=== PATIENT | female | born 1940 | race Caucasian/White ===

== ENCOUNTER 2018-12-05 11:11 | Inpatient (IN) | payer MEDICARE ==
[2018-12-05] VITALS (10 sets, daily range): BP systolic 110–150; BP diastolic 78–108
[~2018-12-05] VITALS: Ht 160 cm; Wt 75.2 kg
[2018-12-05] MEDS ORDERED: MELO7.5T46 PO (13:27)
[2018-12-05 13:56] LABS: ABG BASE EXCESS -1.3 MMOL/L (-2.5-2.5); ABG OXYGEN SATURATION 93 % (94-100); ABG PCO2 37 MMHG (35-45); ABG PO2 68 MMHG (79-93); ABG TCO2 24.1 MMOL/L (21.0-31.0)
[2018-12-05 13:57] LABS: ALLENS TEST POSITIVE; INSPIRED O2 4 L
--- NOTE | 2018-12-05 13:57 | Consultation-Cardiology ---
HPI-Cardiology Cardiology Consultation: Date of Consultation 12/05/18 Time Seen by a Provider: 13:10 Date of Admission 12-05-18 Attending Physician Asha Gipson DO Admitting Physician Amara,Local Physician Consulting Physician Lindsay Beasley MD HPI: Chief Complaint: Dyspnea Ms. Rachel is a 78 year old female admitted to ICU6 from [facility] in [place], [place] where she underwent R knee replacement on 12-04-[address] Saravia. She reports she got up this morning with PT. She ambulated to the PT room with walker and completed exercise rotation without difficulty. She reports on the way back to her room she began to feel suddenly SOB and felt as though she was gasping. She reports she became lightheaded. She was assisted to a w/c to sit. She reports she continued to feel SOB. She was told her oxygen level was 76%. She was placed on oxygen. She states she was assisted back to bed. She reports she is currently feeling better. She feels her SOB has improved. No c/o CP, palpitations, syncope, near syncope. No c/o LE swelling. She reports she takes no Rx medications. She states she does smoke cigs, approx 1/2 PPD at the most. Review of Systems-Cardiology Review of Systems Constitutional: No chills, No fever, No malaise Eyes: No vision change Ears/Nose/Throat: No epistaxis, No recent hearing loss Respiratory: As described under HPI Cardiovascular: As described under HPI Gastrointestinal: No constipation, No diarrhea, No nausea, No vomiting Genitourinary: No dysuria, No hematuria Musculoskeletal: no symptoms reported Skin: No rash on exposed areas, No ulcerations on exposed areas Psychiatric/Neurological: No anxiety, No depression, No seizure, No focal weakness, No syncope Hematologic: No bleeding abnormalities [id number]-Xixvol Hx Past Medical History PMH As described under Assessment. Family Medical History Family Medical History: She reports her mother and father had HTN. No reported h/o CAD, CVA. Allergies and Home Medications Allergies Coded Allergies: No Known Drug Allergies (Unverified , 12/05/18) Home Medications Esomeprazole Magnesium 20 Mg Tablet.dr, 20 MG PO DAILY PRN for HEARTBURN, (Reported) Guaifenesin/Dextromethorphan 1 Each Tab.er.12h, 1 TAB PO BID PRN for CONGESTION, (Reported) Lactobacillus Combo No.10 1 Each Capsule, 1 CAP PO DAILY, (Reported) Loratadine 10 Mg Tablet, 10 MG PO DAILY PRN for ALLERGIES, (Reported) Magnesium Oxide 400 Mg Tablet, 400 MG PO DAILY, (Reported) Meloxicam 7.5 Mg Tablet, 7.5 MG PO BID, (Reported) [place] 3 Polyunsat Fatty Acids 1,000 Mg Cap, 1,000 MG PO DAILY, (Reported) Potassium Gluconate 99 Mg Tablet, 99 MG PO DAILY, (Reported) Turmeric/Turmeric Root Extract 1 Each Capsule, 1,000 MG PO TID, (Reported) Vitamin E Acetate 400 Unit Capsule, 400 UNIT PO DAILY, (Reported) Zinc Gluconate 50 Mg Tablet, 50 MG PO DAILY, (Reported) Physical Exam-Cardiology Physical Exam Vital Signs/I&O 12/05/18 12/05/18 12/05/18 12/06/18 21:00 22:00 23:00 00:00 Pulse 89 86 100 Resp 15 13 29 B/P (MAP) 130/94 (106) 110/90 (97) 126/92 (103) Pulse Ox 94 93 94 O2 Delivery Nasal Cannula Nasal Cannula Nasal Cannula Nasal Cannula O2 Flow Rate 4.00 4.00 4.00 4.00 12/06/18 12/06/18 12/06/18 12/06/18 00:00 00:51 01:00 02:00 Pulse 87 76 75 74 Resp 19 13 14 B/P (MAP) 134/93 (107) 105/72 (83) 116/81 (93) Pulse Ox 94 94 95 O2 Delivery Nasal Cannula Nasal Cannula Nasal Cannula O2 Flow Rate 4.00 4.00 4.00 12/06/18 12/06/18 12/06/18 12/06/18 03:00 04:00 04:00 04:00 Temp 36.4 Pulse 72 67 Resp 16 13 B/P (MAP) 99/65 (76) 98/77 (84) Pulse Ox 94 O2 Delivery Nasal Cannula Nasal Cannula Nasal Cannula O2 Flow Rate 4.00 4.00 4.00 12/06/18 12/06/18 12/06/18 12/06/18 05:00 06:00 06:04 07:00 Pulse 69 74 71 Resp 9 17 B/P (MAP) 90/67 (75) 117/99 (105) O2 Delivery Nasal Cannula Nasal Cannula Nasal Cannula O2 Flow Rate 4.00 4.00 4.00 12/06/18 12/06/18 07:00 08:00 Pulse 64 65 Resp 12 21 B/P (MAP) 114/81 (92) 131/97 (108) Pulse Ox 97 O2 Delivery Nasal Cannula Nasal Cannula O2 Flow Rate 4.00 4.00 12/06/18 00:00 Intake Total 630 ml Output Total 1300 ml Balance -670 ml Capillary Refill : Constitutional: AAO x 3, well-nourished HEENT: PERRL, hearing is well preserved, oral hygience is good Neck: No carotid bruit; carotid pulses are 2 + bilaterally Respiratory: No accessory muscle use, No respiratory distress; chest expansion is symmetric, chest is bilaterally symmetric, lungs clear to auscultation Cardiovascular: No JVD; S1 and S2 Gastrointestinal: No tender; soft, round, audible bowel sounds Extremities: no lower extremity edema bilateral Neurologic/Psychiatric: grossly intact Skin: other (Dressing to left leg D&I - not removed) Data Review Labs Laboratory Tests 12/05/18 13:48: Blood Gas Puncture Site RIGHT RADIAL, Blood Gas Patient Temperature 36.4, Arterial Blood pH 7.40, Arterial Blood Partial Pressure CO2 37, Arterial Blood Partial Pressure O2 68L, Arterial Blood HCO3 23, Arterial Blood Total CO2 24.1, Arterial Blood Oxygen Saturation 93L, Arterial Blood Base Excess -1.3, Keyur Test POSITIVE, Blood Gas Ventilator Setting NO, Blood Gas Inspired Oxygen 4 L 12/05/18 14:45: Urine Color YELLOW, Urine Clarity CLEAR, Urine pH 6.5, Urine Specific [place] 1.010L, Urine Protein NEGATIVE, Urine Glucose (UA) NEGATIVE, Urine Ketones NEGATIVE, Urine Nitrite NEGATIVE, Urine Bilirubin NEGATIVE, Urine Urobilinogen NORMAL, Urine Leukocyte Esterase NEGATIVE, Urine RBC (Auto) NEGATIVE, Urine RBC NONE, Urine WBC NONE, Urine Crystals NONE, Urine Bacteria NEGATIVE, Urine Casts NONE, Urine Mucus NEGATIVE, Urine Culture Indicated NO 12/05/18 15:12: White Blood Count 9.6, Red Blood Count 3.30L, Hemoglobin 10.4L, Hematocrit 32L, Mean Corpuscular Volume 96, Mean Corpuscular Hemoglobin 32, Mean Corpuscular Hemoglobin Concent 33, Red Cell Distribution Width 14.8H, Platelet Count 195, Mean Platelet Volume 10.4, Neutrophils (%) (Auto) 82H, Lymphocytes (%) (Auto) 12, Monocytes (%) (Auto) 5, Eosinophils (%) (Auto) 0, Basophils (%) (Auto) 0, Neutrophils # (Auto) 7.9H, Lymphocytes # (Auto) 1.2, Monocytes # (Auto) 0.5, Eosinophils # (Auto) 0.0, Basophils # (Auto) 0.0, D-Dimer 3.37H, Sodium Level 138, Potassium Level 4.4, Chloride Level 107, Carbon Dioxide Level 24, Anion Gap 7, Blood Urea Nitrogen 21H, Creatinine 0.63, Estimat Glomerular Filtration Rate > 60, BUN/Creatinine Ratio 33, Glucose Level 116H, Lactic Acid Level 1.32, Calcium Level 8.6, Corrected Calcium 8.9, Total Bilirubin 0.4, Aspartate Amino Transf (AST/SGOT) 31, Alanine Aminotransferase (ALT/SGPT) 19, Alkaline Phosphatase 71, Troponin I 0.532*H, B-Type Natriuretic Peptide 83.5, Total Protein 6.2L, Albumin 3.6 12/06/18 07:05: White Blood Count 7.3, Red Blood Count 3.14L, Hemoglobin 9.8L, Hematocrit 31L, Mean Corpuscular Volume 98, Mean Corpuscular Hemoglobin 31, Mean Corpuscular Hemoglobin Concent 32, Red Cell Distribution Width 15.1H, Platelet Count 160, Mean Platelet Volume 10.3, Neutrophils (%) (Auto) 54, Lymphocytes (%) (Auto) 39, Monocytes (%) (Auto) 7, Eosinophils (%) (Auto) 1, Basophils (%) (Auto) 0, Neutrophils # (Auto) 3.9, Lymphocytes # (Auto) 2.9, Monocytes # (Auto) 0.5, Eosinophils # (Auto) 0.0, Basophils # (Auto) 0.0, Sodium Level 139, Potassium Level 4.0, Chloride Level 108H, Carbon Dioxide Level 24, Anion Gap 7, Blood Urea Nitrogen 18, Creatinine 0.61, Estimat Glomerular Filtration Rate > 60, BUN/Creatinine Ratio 30, Glucose Level 88, Calcium Level 8.0L, Corrected Calcium 8.5, Total Bilirubin 0.3, Aspartate Amino Transf (AST/SGOT) 27, Alanine Aminotransferase (ALT/SGPT) 18, Alkaline Phosphatase 69, Total Protein 5.7L, Albumin 3.4, Phosphorus Level 2.8, Magnesium Level 1.9 ECG Impression ECG Initial ECG Rhythm: Normal Sinus A/P-Cardiology Assessment/Admission Diagnosis Sudden onset of dyspnea of undetermined etiology H/O recent L TKR on 12-04-[address] Saravia at [facility] H/O R TKR in 2014 H/O R rotator cuff repair in 2012 Tobaccoism - cessation advised Discussion and Recomendations Sudden onset of dyspnea post surgical of undetermined etiology No evidence of ACS thus far CTA of the chest to r/o PE Echocardiogram to eval structure ASA 81 mg daily - continue Anticoagulation with Lovenox - already given - continue Monitor lab closely Further recs will be based on her hospital course We would like to thank medical services for this consult TEAGAN PEREZ Dec 05, 2018 13:56
[2018-12-05 13:58] LABS: PATIENT TEMP 36.4; VENTILATOR NO
[2018-12-05] MEDS ORDERED: ENOXAPARIN 80 MG/0.8 ML (LOVENOX) SYR SC SCH ×2 (14:00→23:00)
[2018-12-05] MEDS: NS IV 1000 ML 1,000 ML IV SCH ×2 (14:28→20:50)
[2018-12-05] MEDS ORDERED: MELATONIN 3 MG TABLET PO PRN (14:30)
[2018-12-05] MEDS ORDERED: CALCIUM CARBONATE 500 MG (TUMS) TAB.CHEW PO PRN (14:30)
[2018-12-05] MEDS ORDERED: ACETAMINOPHEN 500 MG TAB (TYLENOL) PO PRN (14:30)
[2018-12-05] MEDS ORDERED: diphenhydrAMINE 25 MG TAB (BENADRYL) PO PRN (14:30)
[2018-12-05] MEDS ORDERED: ONDANSETRON 4 MG/2 ML (SDV) Z0FRAN IVP PRN (14:30)
[2018-12-05] MEDS ORDERED: ALPRAZolam 0.25 MG (XANAX) TAB PO PRN (14:30)
[2018-12-05] MEDS ORDERED: LOPERAMIDE 2 MG (IMODIUM) TABLET PO PRN (14:30)
[2018-12-05] MEDS ORDERED: ONDANSETRON 4 MG (ZOFRAN) ORAL DISSOLVE TAB PO PRN (14:30)
--- NOTE | 2018-12-05 14:47 | Progress Note ---
[facility] 12/05/18 8997: Progress Note CC: Shortness of breath status post right knee replacement HPI: Pt presents from [facility] with complaints of of SOB. She had a right knee replacement done yesterday, and states he has no pain in her legs. She reports not sleeping well last night as well as being very warm last night. She states she went to PT this morning and did all of the workouts without pain or difficulty, but on the way back to her room she suddenly felt like she couldn't breathe. She was placed in a wheelchair and brought back to her bed. When she stood up to get from eh chair to the bed she felt very lightheaded, but she has since then not felt light headed. She states that when they checked her oxygen levels in the bed it was in the low 70s. She was placed on 4L of oxygen and since then has been able to stay in the low 90s as long as she remembers to breathe through her nose. She states she has not felt any shortness of breath since being on the oxygen. She states there is no has been no calf pain, chest pain, palpitations, cough, chills, nausea, vomiting, diarrhea, numbness, tingling, double/blurry vision, or neck pain. She states she had a minor headache yesterday evening. Vitals: BP 115/92, HR 103, O2 93% on 4L nasal cannula, Exam: Gen: Alert/Oriented x3, pleasant Heart- Tachycardia, no murmur, no gallop Lung- CTAB, no wheezes, rhonchi, or rales MSK: no calf tenderness bilaterally, Lab Results: pO2: 68 (L), pH: 7.4, HCO3: 23, O2 sat: 93 (L) CBC: WBC 9.6, RBC 3.3 (L), Hgb 10.4 (L), Hct 32 (L) D-dimer: 3.37 (H) Troponin: 0.532 (H) Bilateral Lower Extremity Venous Doppler: Negative for DVT Differential Diagnosis: 1. Pulmonary embolism 2. Acute Coronary Syndrome 3. Asthma/bronchospasm ASHA HELM DO 12/05/182058: Supervisory-Addendum Brief Verification & Attestation Participated in pt care: history, MDM, physical Personally performed: exam, history, MDM, supervision of care Care discussed with: Medical Student Procedures: n/a Results interpretation: Verified all documentation Verification and Attestation of Medical Student E/M Service A medical student performed and documented this service in my presence. I reviewed and verified all information documented by the medical student and made modifications to such information, when appropriate. I personally performed the physical exam and medical decision making. Asha Helm, Dec 06, 2018,07:57 [facility] Dec 05, 2018 14:47 ASHA HELM DO Dec 05, 2018 20:59
--- NOTE | 2018-12-05 15:22 | Pulmonary Consultation ---
History of Present Illness History of Present Illness Date of Consultation 12/05/18 15:21 Date of Admission Allergies and Home Medications Allergies Coded Allergies: No Known Drug Allergies (Unverified , 12/05/18) Home Medications Esomeprazole Magnesium 20 Mg Tablet.dr, 20 MG PO DAILY PRN for HEARTBURN, (Reported) Guaifenesin/Dextromethorphan 1 Each Tab.er.12h, 1 TAB PO BID PRN for CONGESTION, (Reported) Lactobacillus Combo No.10 1 Each Capsule, 1 CAP PO DAILY, (Reported) Loratadine 10 Mg Tablet, 10 MG PO DAILY PRN for ALLERGIES, (Reported) Magnesium Oxide 400 Mg Tablet, 400 MG PO DAILY, (Reported) Meloxicam 7.5 Mg Tablet, 7.5 MG PO BID, (Reported) [place] 3 Polyunsat Fatty Acids 1,000 Mg Cap, 1,000 MG PO DAILY, (Reported) Potassium Gluconate 99 Mg Tablet, 99 MG PO DAILY, (Reported) Turmeric/Turmeric Root Extract 1 Each Capsule, 1,000 MG PO TID, (Reported) Vitamin E Acetate 400 Unit Capsule, 400 UNIT PO DAILY, (Reported) Zinc Gluconate 50 Mg Tablet, 50 MG PO DAILY, (Reported) Past Cidsgci-Yucmjt-Fyenbt Hx Patient Social History Alcohol Use: Denies Use Recreational Drug Use: No Smoking Status: Current Everyday Smoker Type Used: Cigarettes Recent Foreign Travel: No Contact w/Someone Who Travel: No Recent Infectious Disease Expo: No Recent Hopitalizations: No Immunizations Up To Date PED Vaccines UTD: No Seasonal Allergies Seasonal Allergies: Yes Past Medical History Surgeries: Yes Respiratory: No Cardiac: No Neurological: No Genitourinary: No Gastrointestinal: No Musculoskeletal: Yes Arthritis Endocrine: No HEENT: Yes Cataract Loss of Vision: Denies Hearing Impairment: Denies Cancer: No Psychosocial: No Integumentary: No Blood Disorders: No Adverse Reaction/Blood Tranf: No Sepsis Event Evaluation Height, Weight, BMI Height: '" Weight: lbs. oz. kg; 29.29 BMI Method: Exam Exam Vital Signs Date Time Temp Pulse Resp B/P (MAP) Pulse Ox O2 Delivery O2 Flow Rate FiO2 12/05/18 15:00 101 17 92 Nasal Cannula 4.00 12/05/18 14:00 101 14 115/92 (100) 91 Nasal Cannula 4.00 10/10/19 13:30 101 12/05/18 13:15 101 32 137/102 (114) 90 Nasal Cannula 4.00 Height & Weight Height: '" Weight: lbs. oz. kg; 29.29 BMI Method: Assessment/Plan Assessment/Plan SOB with hypoxia r/o PE -CTA chest pending -Labs pending -Continue oxygen therapy -Echo pending S/p TKR 12/04/18 Tobacco dependance -Education AYUSH GALEANO DO Dec 05, 2018 15:22
[2018-12-05 15:38] LABS: BASOPHILS % (AUTO) 0 % (0-10); EOSINOPHILS % (AUTO) 0 % (0-10); HEMATOCRIT 32 % (35-52); HEMOGLOBIN 10.4 G/DL (11.5-16.0); LYMPHOCYTES # (AUTO) 1.2 X 10^3 (1.0-4.0); LYMPHOCYTES % (AUTO) 12 % (12-44); MEAN CORPUSCULAR HEMOGLOBIN 32 PG (25-34); MEAN CORPUSCULAR HGB CONC 33 G/DL (32-36); MEAN CORPUSCULAR VOLUME 96 FL (80-99); MEAN PLATELET VOLUME 10.4 FL (7.4-10.4); MONOCYTES # (AUTO) 0.5 X 10^3 (0.0-1.0); MONOCYTES % (AUTO) 5 % (0-12); NEUTROPHILS # (AUTO) 7.9 X 10^3 (1.8-7.8); NEUTROPHILS % (AUTO) 82 % (42-75); PLATELET COUNT 195 10^3/uL (130-400); RED CELL DISTRIBUTION WIDTH 14.8 % (10.0-14.5); WHITE BLOOD COUNT 9.6 10^3/uL (4.3-11.0)
[2018-12-05] MEDS ORDERED: ESOM20TA PO (15:53)
[2018-12-05] MEDS ORDERED: ZINC50TA4 PO (15:53)
[2018-12-05] MEDS ORDERED: TURM500C4 PO (15:53)
[2018-12-05] MEDS ORDERED: LACT1CAP72 PO (15:53)
[2018-12-05] MEDS ORDERED: VITA400C60 PO (15:53)
[2018-12-05] MEDS ORDERED: GUAI-367 PO (15:53)
[2018-12-05] MEDS ORDERED: LORA10TA76 PO (15:53)
[2018-12-05] MEDS ORDERED: POTA99TA21 PO (15:53)
[2018-12-05] MEDS ORDERED: MAGN400T39 PO (15:53)
[2018-12-05] MEDS ORDERED: OMG1KC PO (15:53)
--- NOTE | 2018-12-05 15:54 | NUR ---
SPOKE WITH THE PATIENT ABOUT HER MEDICATIONS. SHE STATES SHE TAKES ONLY OTC MEDICATIONS. SHE WAS TAKING MELOXICAM PRIOR TO HER SURGERY AND STATES SHE IS UNSURE IF SHE IS TO RESUME TAKING IT NOW. SHE WAS TOLD SHE SHOULD FILL HER PAIN MEDICATIONS AT [facility] BECAUSE [facility] WOULD NOT FILL MORE THAN A 3 DAY SUPPLY HOWEVER SHE WAS NOT ABLE TO GET THE PRESCRIPTION OR THAT FILLED PRIOR TO BEING ADMITTED HERE SO I DID NOT INCLUDE ANY PAIN MEDICATION ON THE MED REC AT THIS TIME. I DID ADD THE MELOXICAM SINCE SHE HAS BEEN TAKING IT AND ACCORDING TO THE EXT MED HX IT WAS REFILLED TODAY. OTC MEDS INCLUDE: NEXIUM PRN CLARITIN PRN MUCINEX DM BID PRN TURMERIC 2 TID ZINC DAILY VITAMIN E DAILY FISH OIL DAILY PROBIOTIC DAILY POTASSIUM DAILY MAGNESIUM DAILY
[2018-12-05 15:55] LABS: ALANINE AMINOTRANSFERASE 19 U/L (0-55); ALBUMIN 3.6 GM/DL (3.2-4.5); ALKALINE PHOSPHATASE 71 U/L (40-136); BILIRUBIN,TOTAL 0.4 MG/DL (0.1-1.0); BUN/CREATININE RATIO 33; CALCIUM 8.6 MG/DL (8.5-10.1); CARBON DIOXIDE 24 MMOL/L (21-32); CHLORIDE 107 MMOL/L (98-107); CREATININE SERUM 0.63 MG/DL (0.60-1.30); GFR ESTIMATED > 60; GLUCOSE 116 MG/DL (70-105); POTASSIUM 4.4 MMOL/L (3.6-5.0); SODIUM 138 MMOL/L (135-145); TOTAL PROTEIN 6.2 GM/DL (6.4-8.2)
--- NOTE | 2018-12-05 16:06 | Diagnostic Imaging Report ---
PROCEDURE: US Venous Lower Ext Félix. TECHNIQUE: Multiple real-time grayscale images were obtained over the lower extremities in various projections, bilaterally. Additional duplex Doppler and color Doppler images were also obtained. INDICATION: Pulmonary embolism. FINDINGS: There is no evidence of right or left lower extremity DVT. Both lower extremity deep venous systems demonstrate normal compressibility with normal response to augmentation and Valsalva. No fluid collection or mass is seen. IMPRESSION: No evidence of right or left lower extremity DVT. Dictated by: Dictated on workstation # [id number]
[2018-12-05 16:22] LABS: BILIRUBIN,URINE NEGATIVE (NEGATIVE); CLARITY,URINE CLEAR; COLOR,URINE YELLOW; GLUCOSE, URINE (UA) NEGATIVE (NEGATIVE); KETONES,URINE NEGATIVE (NEGATIVE); LEUKOCYTE ESTERASE ,URINE NEGATIVE (NEGATIVE); NITRITE,URINE NEGATIVE (NEGATIVE); PH,URINE 6.5 (5-9); PROTEIN,URINE NEGATIVE (NEGATIVE)
[2018-12-05] MEDS ORDERED: HOLD METFORMIN - RECEIVED CONTRAST 20 ML VIAL IV SCH (16:45)
[2018-12-05] MEDS ORDERED: CATHETER FLUSH 10 ML SYR IV PRN (16:45)
[2018-12-05] MEDS ORDERED: IOHEXOL 350 MG/ML 100 ML (OMNIPAQUE 350) VIAL IV ONE (16:45)
[2018-12-05] MEDS ORDERED: NS 100 ML (IVPB) BAG IV ONE (16:45)
[2018-12-05 16:52] LABS: BACTERIA,URINE NEGATIVE /HPF
[2018-12-05] MEDS ORDERED: RT-ALBUTEROL/IPRATROPIUM 3 ML (DUONEB) VIAL INH PRN (17:15)
--- NOTE | 2018-12-05 17:48 | Diagnostic Imaging Report ---
INDICATION: Shortness of breath, recent knee replacement. TECHNIQUE: CTA chest obtained with IV contrast bolus and axial slices and MIP reconstructions. FINDINGS: The study is positive for pulmonary emboli. There are jethx-jv-ojazkjmm emboli in the left lower lobe pulmonary arterial branches as well as an embolus in one of the smaller branches of the left upper lobe. There is a nonocclusive thrombus in the right main pulmonary artery laterally as well as some smaller emboli in the right lower lobe branches. There is no evidence of aortic dissection or aneurysm. Great vessel origins are patent. There is no pleural or pericardial fluid. A large hiatal hernia is present. There is no mediastinal adenopathy. There is no overt pulmonary consolidation. There is some atelectatic change in the right base. There is no overt right heart strain. IMPRESSION: Evidence of moderate-sized pulmonary emboli, as described above. There is no aortic aneurysm or dissection. There is a large hiatal hernia. There is some mild right basilar atelectasis. Report given to ICU nurse (Isha) at 5:47 p.m. 12/05/2018/cb Dictated by: Dictated on workstation # [id number]
--- NOTE | 2018-12-05 18:28 | Consultation-Cardiology ---
HPI-Cardiology Cardiology Consultation: Date of Consultation 12/05/18 Time Seen by a Provider: 17:30 Date of Admission Attending Physician Asha Gipson DO Admitting Physician Amara,Local Physician Consulting Physician LUCY PIPER MD, MA, FACP, FACC, [facility], CCDS Physician requesting consult: Dr Gipson HPI: Chief Complaint: CC: Shortness of breath, feeling of impending doom HPI Ms. Rachel is a 78 year old female admitted to ICU6 from [facility] in [place], [place] where she underwent R knee replacement on 12-04-[address] Saravia. She reports she got up this morning with PT. She ambulated to the PT room with walker and completed exercise rotation without difficulty. She reports on the way back to her room she began to feel suddenly SOB and felt as though she was gasping. She reports she became lightheaded. She was assisted to a w/c to sit. She reports she continued to feel SOB. She was told her oxygen level was 76%. She was placed on oxygen. She states she was assisted back to bed. She reports she is currently feeling better. She feels her SOB has improved. No c/o CP, palpitations, syncope, near syncope. No c/o LE swelling. She reports she takes no Rx medications. She states she does smoke cigs, approx 1/2 PPD at the most. Review of Systems-Cardiology Review of Systems Constitutional: No chills, No fever, No malaise Eyes: No vision change Ears/Nose/Throat: No epistaxis, No recent hearing loss Respiratory: As described under HPI Cardiovascular: As described under HPI Gastrointestinal: No constipation, No diarrhea, No nausea, No vomiting Genitourinary: No dysuria, No hematuria Musculoskeletal: no symptoms reported Skin: No rash on exposed areas, No ulcerations on exposed areas Psychiatric/Neurological: No anxiety, No depression, No seizure, No focal weakness, No syncope Hematologic: No bleeding abnormalities HGB-Xvzgct-Knerfy Hx Patient Social History Alcohol Use: Denies Use Recreational Drug Use: No Smoking Status: Current Everyday Smoker Type Used: Cigarettes Recent Foreign Travel: No Recent Infectious Disease Expo: No Hospitalization with Isolation: Denies Physical Abuse Screen: No Sexual Abuse: No Past Medical History PMH As described under Assessment. Family Medical History Family Medical History: She reports her mother and father had HTN. No reported h/o CAD, CVA. Allergies and Home Medications Allergies Coded Allergies: No Known Drug Allergies (Unverified , 12/05/18) Home Medications Esomeprazole Magnesium 20 Mg Tablet.dr, 20 MG PO DAILY PRN for HEARTBURN, (Reported) Guaifenesin/Dextromethorphan 1 Each Tab.er.12h, 1 TAB PO BID PRN for CONGESTION, (Reported) Lactobacillus Combo No.10 1 Each Capsule, 1 CAP PO DAILY, (Reported) Loratadine 10 Mg Tablet, 10 MG PO DAILY PRN for ALLERGIES, (Reported) Magnesium Oxide 400 Mg Tablet, 400 MG PO DAILY, (Reported) Meloxicam 7.5 Mg Tablet, 7.5 MG PO BID, (Reported) [place] 3 Polyunsat Fatty Acids 1,000 Mg Cap, 1,000 MG PO DAILY, (Reported) Potassium Gluconate 99 Mg Tablet, 99 MG PO DAILY, (Reported) Turmeric/Turmeric Root Extract 1 Each Capsule, 1,000 MG PO TID, (Reported) Vitamin E Acetate 400 Unit Capsule, 400 UNIT PO DAILY, (Reported) Zinc Gluconate 50 Mg Tablet, 50 MG PO DAILY, (Reported) Patient Home Medication List Home Medication List Reviewed: Yes Physical Exam-Cardiology Physical Exam Vital Signs/I&O 12/05/18 12/05/18 12/05/18 12/05/18 13:15 13:30 14:00 14:40 Pulse 101 101 101 Resp 32 14 B/P (MAP) 137/102 (114) 115/92 (100) Pulse Ox 90 91 92 O2 Delivery Nasal Cannula Nasal Cannula Nasal Cannula O2 Flow Rate 4.00 4.00 4.00 12/05/18 12/05/18 12/05/18 12/05/18 15:00 16:00 16:05 16:32 Temp 36.6 36.6 Pulse 101 101 Resp 17 B/P (MAP) Pulse Ox 92 96 92 O2 Delivery Nasal Cannula Nasal Cannula O2 Flow Rate 4.00 4.00 12/05/18 12/05/18 17:00 18:00 Pulse 97 89 Resp 34 17 B/P (MAP) 131/87 (102) 134/78 (96) Pulse Ox 98 96 O2 Delivery Nasal Cannula Nasal Cannula O2 Flow Rate 4.00 4.00 Capillary Refill : Constitutional: AAO x 3, well-nourished HEENT: PERRL, hearing is well preserved, oral hygience is good Neck: No carotid bruit; carotid pulses are 2 + bilaterally Respiratory: No accessory muscle use, No respiratory distress; chest expansion is symmetric, chest is bilaterally symmetric, lungs clear to auscultation Cardiovascular: No JVD; S1 and S2 Gastrointestinal: No tender; soft, round, audible bowel sounds Extremities: no lower extremity edema bilateral Neurologic/Psychiatric: grossly intact Skin: other (Dressing to left leg D&I - not removed) Data Review Labs Laboratory Tests 12/05/18 13:48: Blood Gas Puncture Site RIGHT RADIAL, Blood Gas Patient Temperature 36.4, Arterial Blood pH 7.40, Arterial Blood Partial Pressure CO2 37, Arterial Blood Partial Pressure O2 68L, Arterial Blood HCO3 23, Arterial Blood Total CO2 24.1, Arterial Blood Oxygen Saturation 93L, Arterial Blood Base Excess -1.3, Keyur Test POSITIVE, Blood Gas Ventilator Setting NO, Blood Gas Inspired Oxygen 4 L 12/05/18 14:45: Urine Color YELLOW, Urine Clarity CLEAR, Urine pH 6.5, Urine Specific [place] 1.010L, Urine Protein NEGATIVE, Urine Glucose (UA) NEGATIVE, Urine Ketones NEGATIVE, Urine Nitrite NEGATIVE, Urine Bilirubin NEGATIVE, Urine Urobilinogen NORMAL, Urine Leukocyte Esterase NEGATIVE, Urine RBC (Auto) NEGATIVE, Urine RBC NONE, Urine WBC NONE, Urine Crystals NONE, Urine Bacteria NEGATIVE, Urine Casts NONE, Urine Mucus NEGATIVE, Urine Culture Indicated NO 12/05/18 15:12: White Blood Count 9.6, Red Blood Count 3.30L, Hemoglobin 10.4L, Hematocrit 32L, Mean Corpuscular Volume 96, Mean Corpuscular Hemoglobin 32, Mean Corpuscular Hemoglobin Concent 33, Red Cell Distribution Width 14.8H, Platelet Count 195, Mean Platelet Volume 10.4, Neutrophils (%) (Auto) 82H, Lymphocytes (%) (Auto) 12, Monocytes (%) (Auto) 5, Eosinophils (%) (Auto) 0, Basophils (%) (Auto) 0, Neutrophils # (Auto) 7.9H, Lymphocytes # (Auto) 1.2, Monocytes # (Auto) 0.5, Eosinophils # (Auto) 0.0, Basophils # (Auto) 0.0, D-Dimer 3.37H, Sodium Level 138, Potassium Level 4.4, Chloride Level 107, Carbon Dioxide Level 24, Anion Gap 7, Blood Urea Nitrogen 21H, Creatinine 0.63, Estimat Glomerular Filtration Rate > 60, BUN/Creatinine Ratio 33, Glucose Level 116H, Lactic Acid Level 1.32, Car cium Level 8.6, Corrected Calcium 8.9, Total Bilirubin 0.4, Aspartate Amino Transf (AST/SGOT) 31, Alanine Aminotransferase (ALT/SGPT) 19, Alkaline Phosphatase 71, Troponin I 0.532*H, B-Type Natriuretic Peptide 83.5, Total Pr otein 6.2L, Albumin 3.6 A/P-Cardiology Assessment/Admission Diagnosis Sudden onset of dyspnea of undetermined etiology, PE suspected H/O recent L TKR on 12-04-[address] Saravia at [facility] H/O R TKR in 2014 H/O R rotator cuff repair in 2012 Tobaccoism - cessation advised Discussion and Recomendations * Treat with enoxaparin for PE * CTA of the chest to r/o PE * Echocardiogram to eval vent function to eval for R heart strain or pulm htn * ASA 81 mg daily - continue * Monitor lab closely * Further recs will be based on her hospital course * I discussed her case with Dr Gipson Clinical Quality Measures DVT/VTE Risk/Contraindication: Risk Factor Score Per Nursin RFS Level Per Nursing on Admit: 4+=Very High LUCY PIPER MD FACP FAC CCDS Dec 05, 2018 18:28
[2018-12-05] MEDS: RT-ALBUTEROL/IPRATROPIUM 3 ML (DUONEB) VIAL INH SCH (19:29)
[2018-12-05] MEDS: DOCUSATE SODIUM 100 MG (COLACE) CAP PO SCH (20:51)
[2018-12-05] MEDS: SENNA W/DOCUSATE (SENOKOT S) TABLET PO SCH (20:51)
[2018-12-05] MEDS: POLYETHYLENE GLYCOL 17 GM (MIRALAX) PACK PO SCH (20:51)
[2018-12-06] VITALS (14 sets, daily range): BP systolic 90–155; BP diastolic 65–99
[2018-12-06] MEDS: NS IV 1000 ML 1,000 ML IV SCH ×3 (00:19→15:47)
[2018-12-06] MEDS: HYDROcodone/APAP 5 MG/325 MG (LORTAB) TAB PO PRN ×5 (02:29→20:30)
[2018-12-06] MEDS: fentaNYL INJECTION 100 MCG/2 ML AMP IVP PRN ×4 (04:36→18:26)
--- NOTE | 2018-12-06 06:29 | Pulmonary Progress Note ---
Subjective Time Seen by a Provider: 06:27 Subjective/Events-last exam PT feels better. Sepsis Event Evaluation Height, Weight, BMI Height: '" Weight: lbs. oz. kg; 29.29 BMI Method: Focused Exam Lactate Level 12/05/18 15:12: Lactic Acid Level 1.32 Exam Exam Vital Signs Date Time Temp Pulse Resp B/P (MAP) Pulse Ox O2 Delivery O2 Flow Rate FiO2 12/06/18 06:04 117/99 (105) Nasal Cannula 4.00 12/06/18 06:00 74 17 Nasal Cannula 4.00 12/06/18 05:00 69 9 90/67 (75) Nasal Cannula 4.00 12/06/18 04:00 36.4 12/06/18 04:00 67 13 98/77 (84) Nasal Cannula 4.00 12/06/18 04:00 94 Nasal Cannula 4.00 12/06/18 03:00 72 16 99/65 (76) Nasal Cannula 4.00 12/06/18 02:00 74 14 116/81 (93) 95 Nasal Cannula 4.00 12/06/18 01:00 75 13 105/72 (83) 94 Nasal Cannula 4.00 12/06/18 00:51 76 12/06/18 00:00 87 19 134/93 (107) 94 Nasal Cannula 4.00 12/06/18 00:00 94 Nasal Cannula 4.00 12/05/18 23:00 100 29 126/92 (103) Nasal Cannula 4.00 12/05/18 22:00 86 13 110/90 (97) 93 Nasal Cannula 4.00 12/05/18 21:00 89 15 130/94 (106) 94 Nasal Cannula 4.00 12/05/18 20:00 36.3 12/05/18 20:00 103 22 128/89 (102) 94 Nasal Cannula 4.00 12/05/18 20:00 96 Nasal Cannula 4.00 12/05/18 19:31 94 Nasal Cannula 3.50 12/05/18 19:06 104 12/05/18 19:00 105 14 150/108 (122) 93 Nasal Cannula 4.00 12/05/18 18:00 89 17 134/78 (96) 96 Nasal Cannula 4.00 12/05/18 17:00 97 34 131/87 (102) 98 Nasal Cannula 4.00 12/05/18 16:32 36.6 101 92 12/05/18 16:05 36.6 12/05/18 16:00 96 Nasal Cannula 4.00 12/05/18 15:00 101 17 92 Nasal Cannula 4.00 12/05/18 14:40 92 Nasal Cannula 4.00 12/05/18 14:00 101 14 115/92 (100) 91 Nasal Cannula 4.00 12/05/18 13:30 101 12/05/18 13:15 101 32 137/102 (114) 90 Nasal Cannula 4.00 I & O 12/06/18 07:00 Intake Total 1780 ml Output Total 1670 ml Balance 110 ml Height & Weight Height: '" Weight: lbs. oz. kg; 29.29 BMI Method: General Appearance: No Apparent Distress, WD/WN HEENT: PERRL/EOMI, Pharynx Normal Neck: Full Range of Motion, Non Tender, Supple Respiratory: Chest Non Tender, Normal Breath Sounds, No Accessory Muscle Use, No Respiratory Distress, Decreased Breath Sounds Cardiovascular: Regular Rate, Rhythm, No Edema, No Gallop Capillary Refill: Less Than 3 Seconds Gastrointestinal: normal bowel sounds, non tender, soft, no organomegaly Extremity: Normal Capillary Refill, Normal Inspection, Normal Range of Motion, No Pedal Edema Neurologic/Psychiatric: Alert, Oriented x3 Skin: Normal Color, Warm/Dry Lymphatic: No Adenopathy Results Lab Laboratory Tests 12/05/18 15:12 Assessment/Plan Assessment/Plan Acute bilateral PE - provoked - No prior episode -Change Lovenox to Eliquis today. PT will need 3-6 mo of anticoagulation -Pt may need home oxygen -Labs pending -Continue oxygen therapy -Echo pending S/p TKR 12/04/18 Tobacco dependance -Education -Out pt testing Will transfer to 4th floor with tele. AYUSH GALEANO DO Dec 06, 2018 06:29
--- NOTE | 2018-12-06 07:11 | Diagnostic Imaging Report ---
INDICATION: Shortness of breath FINDINGS: The heart size upper limits. There is a large retrocardiac hernia. The lungs clear. No failure, effusion or pneumothorax. IMPRESSION: Upper limits heart size but no overt failure. No pneumonia or pleural pathology. Retrocardiac hernia noted Dictated by: Dictated on workstation # [id number]
[2018-12-06 07:27] LABS: BASOPHILS % (AUTO) 0 % (0-10); EOSINOPHILS % (AUTO) 1 % (0-10); HEMATOCRIT 31 % (35-52); HEMOGLOBIN 9.8 G/DL (11.5-16.0); LYMPHOCYTES # (AUTO) 2.9 X 10^3 (1.0-4.0); LYMPHOCYTES % (AUTO) 39 % (12-44); MEAN CORPUSCULAR HEMOGLOBIN 31 PG (25-34); MEAN CORPUSCULAR HGB CONC 32 G/DL (32-36); MEAN CORPUSCULAR VOLUME 98 FL (80-99); MEAN PLATELET VOLUME 10.3 FL (7.4-10.4); MONOCYTES # (AUTO) 0.5 X 10^3 (0.0-1.0); MONOCYTES % (AUTO) 7 % (0-12); NEUTROPHILS # (AUTO) 3.9 X 10^3 (1.8-7.8); NEUTROPHILS % (AUTO) 54 % (42-75); PLATELET COUNT 160 10^3/uL (130-400); RED CELL DISTRIBUTION WIDTH 15.1 % (10.0-14.5); WHITE BLOOD COUNT 7.3 10^3/uL (4.3-11.0)
[2018-12-06 07:57] LABS: ALANINE AMINOTRANSFERASE 18 U/L (0-55); ALBUMIN 3.4 GM/DL (3.2-4.5); ALKALINE PHOSPHATASE 69 U/L (40-136); BILIRUBIN,TOTAL 0.3 MG/DL (0.1-1.0); BUN/CREATININE RATIO 30; CARBON DIOXIDE 24 MMOL/L (21-32); CHLORIDE 108 MMOL/L (98-107); CREATININE SERUM 0.61 MG/DL (0.60-1.30); GFR ESTIMATED > 60; GLUCOSE 88 MG/DL (70-105); MAGNESIUM 1.9 MG/DL (1.6-2.4); PHOSPHORUS 2.8 MG/DL (2.3-4.7); SODIUM 139 MMOL/L (135-145); TOTAL PROTEIN 5.7 GM/DL (6.4-8.2)
--- NOTE | 2018-12-06 08:03 | History & Physical-Hospitalist ---
History of Present Illness HPI/Chief Complaint CC: Dyspnea Note from [facility] Chiquis yesterday: Seen around 11:45 I was called by RN on my way to [place] for tachycardia of 130, abrupt onset of SOB and hypoxia, required 4 liters of O2 and had to be helped back in bed. This happened just abruptly She has no history of PE or DVT and does not take any prescription medication Has never had SOB like this I arrived at the bedside and ABG reveals 7.57/ with confirmed hypoxia I suspect there to have been a dislodged DVT into a pulmonary emboli causing these symptoms or a pulmonary edema congestive heart failure versus acute coronary syndrome EKG reveals sinus tachycardia of 130 BP remained stable at 120/75 Heart rate of 130-90 Updated pt and and they choose to go to [facility] in [place] where I can provide her care in the ICU I did confer with Dr. Beasley and Dr. Billings and they will expect her Put in all ICU orders, CT angiogram, B/L Lower extremity venous doppler, D- dimer, Troponin, BNP, Septic work-up, CBC, CMP, EKG and chest x-ray I already dosed her with Lovenox of 1mg/kg to cover for any type of pulmonary embolism I did confer with Dr. Saravia who did agree with the plan Afebrile, heart rate 90-130, BP 120/75, O2 sat of 83 % off O2 Tachycardic at 94 beats per minute, No murmur, CTAB, mild tachypnea but CTAB, Trace edema B/L lower extremities Home Meds Vitamin E 400IU Oral Capsule, Liquid Filled 400 INTERNATIONAL UNITS ORAL Daily Claritin 10MG Oral Tablet 10 MILLIGRAMS ORAL Every 24 hours as needed Meloxicam 7.5MG Oral Tablet 7.5 MILLIGRAMS ORAL Twice Daily Mucinex DM 60MG-1200MG Oral Tablet, Extended Release 1 EACH ORAL Every 24 hours as needed NexIUM 24HR 20MG Oral Capsule, Delayed Release 20 MILLIGRAMS ORAL Every 24 hours as needed Turmeric 1000MG-5MG Oral Capsule 1 EACH ORAL Three times a day Vitamin B12 5000 MCG Sublingual Tablet 5000 MCG SUBLINGUAL Daily Vitamin D3 5000 IU Oral Capsule 5000 IU ORAL Daily Zinc 50 MG Oral Tablet 50 MG ORAL Daily Blood Pressure: 128/84 LYING R ARM 12/05/2018 12:04 AFVSS, Pleasant, O x 3, anxious, tachypneic RRR, CTAB mild tachypneic No edema Labs: pH: 7.35 12/05/2018 11:21 O2 SAT: 90 % L 12/05/2018 11:21 BE: -5 mmol/L L 12/05/2018 11:21 TROPONIN: 0.05 Ng/ml H 12/05/2018 11:21 CREATININE: 0.6 mg/dl 12/05/2018 07:53 SODIUM: 137 mmol/L L 12/05/2018 07:53 HEMOGLOBIN: 10.9 gm/dl L 12/05/2018 07:53 A/P: 1. LEFT TOTAL KNEE ARTHROPLASTY SURGERY UNCOMPLICATED POD# 1 2. Anemia Hx 3. Environmental rhinitis 4. GERD 5. OA 6. Post-op acute dyspnea with acute hypoxia severe in nature with tachypnea and hypoxemia on ABG suspicious for a dislodged DVT pelvis DVT into a pulmonary embolism requiring higher level of transfer Transfer emergently ambulance to the ICU with cardiology and pulmonology consultation, CT angiogram, Lovenox 1mg/kg to cover for any type of clotting disorder and will monitor pt closely Extensive medical management required in this case Continue all home meds Monitor labs and BP Counseled patient on the need to use IS faithfully This document was scribed by Virginia Barahona under the supervision of Dr. Asha Helm. Source: patient, RN/MD Exam Limitations: no limitations Date Seen 12/06/18 Time Seen by a Provider: 08:00 Attending Physician Asha Helm DO PCP No,Local Physician Referring Physician Date of Admission Dec 05, 2018 at 13:00 Home Medications & Allergies Home Medications Reviewed patient Home Medication Reconciliation performed by pharmacy medication reconciliations infectious waste technician and/or nursing. Patients Allergies have been reviewed. 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, homemaker) Alcohol Use: Denies Use Recreational Drug Use: No Smoking Status: Current Everyday Smoker Type Used: Cigarettes Physical Abuse Screen: No Sexual Abuse: No Recent Foreign Travel: No Contact w/other who traveled: No Recent Hopitalizations: No Recent Infectious Disease Expo: No Immunizations Up To Date Pediatric: No Seasonal Allergies Seasonal Allergies: Yes Past Medical History Surgeries: Orthopedic (left knee 12/04/18 Dr Sraavia) Musculoskeletal: Arthritis HEENT: Cataract Loss of Vision: Denies Hearing Impairment: Denies History of Blood Disorders: No Adverse Reaction to Blood Rios: No Review of Systems Constitutional: see HPI EENTM: no symptoms reported Respiratory: dyspnea on exertion, short of breath, wheezing Cardiovascular: palpitations Musculoskeletal: joint pain (left knee) Physical Exam Physical Exam Vital Signs Vital Signs - First Documented 12/05/18 12/05/18 13:15 16:05 Temp 36.6 Pulse 101 Resp 32 B/P (MAP) 137/102 (114) Pulse Ox 90 O2 Delivery Nasal Cannula O2 Flow Rate 4.00 Capillary Refill : Less Than 3 Seconds Height, Weight, BMI Height: '" Weight: lbs. oz. kg; 29.29 BMI Method: General Appearance: WD/WN, Anxious, Moderate Distress Eyes: Right Eye Normal Inspection, Right Eye PERRL HEENT: PERRL/EOMI, Normal ENT Inspection, Pharynx Normal, Moist Mucous Membranes Neck: Full Range of Motion, Normal Inspection, Non Tender Respiratory: Chest Non Tender, Lungs Clear, Normal Breath Sounds, Accessory Muscle Use, Respiratory Distress Cardiovascular: Regular Rate, Rhythm, No Edema, No Gallop, No JVD, No Murmur, Normal Peripheral Pulses Gastrointestinal: Normal Bowel Sounds, No Organomegaly, No Pulsatile Mass, Non Tender, Soft Back: Normal Inspection, No CVA Tenderness, No Vertebral Tenderness Extremity: Normal Capillary Refill, Normal Inspection, Normal Range of Motion, Non Tender, No Calf Tenderness, No Pedal Edema Neurologic/Psychiatric: Alert, Oriented x3, No Motor/Sensory Deficits, Normal Mood/Affect Skin: Normal Color, Warm/Dry Lymphatic: No Adenopathy Results Results/Procedures Labs Laboratory Tests 12/05/18 15:12 12/06/18 07:05 Patient resulted labs reviewed. Assessment/Plan Admission Diagnosis Assessment: Acute PE Hypoxia Elevated troponin Tobacco use OA Plan: PT/OT CPM machine OAC transition Admission Status: Inpatient Order (span 2 midnights) Reason for Inpatient Admission: Acute PE with elevated troponin and hypoxia Diagnosis/Problems Diagnosis/Problems (1) Pulmonary embolism Status: Acute Qualifiers: Pulmonary embolism type: other Chronicity: acute Acute cor pulmonale presence: with acute cor pulmonale Qualified Codes: I26.09 - Other pulmonary embolism with acute cor pulmonale (2) Hypoxia Status: Acute (3) Tachypnea Status: Acute (4) Status post total knee replacement, left Status: Acute (5) Elevated troponin Status: Acute (6) Dyspnea Status: Acute Qualifiers: Dyspnea type: shortness of breath Qualified Codes: R06.02 - Shortness of breath Clinical Quality Measures DVT/VTE Risk/Contraindication: Risk Factor Score Per Nursin RFS Level Per Nursing on Admit: 4+=Very High ASHA HELM DO Dec 06, 2018 08:03
--- NOTE | 2018-12-06 08:44 | Progress Note - Cardiology ---
Cardiology SOAP Progress Note Subjective: Sitting up in bed eating breakfast. Denies any c/o CP, palpitations, syncope, near syncope or dyspnea this morning. States she feels as well as she did a week ago. Objective: I&O/Vital Signs 12/06/18 12/06/18 12/06/18 12/06/18 02:00 03:00 04:00 04:00 Pulse 74 72 67 Resp 14 16 13 B/P (MAP) 116/81 (93) 99/65 (76) 98/77 (84) Pulse Ox 95 94 O2 Delivery Nasal Cannula Nasal Cannula Nasal Cannula Nasal Cannula O2 Flow Rate 4.00 4.00 4.00 4.00 12/06/18 12/06/18 12/06/18 12/06/18 04:00 05:00 06:00 06:04 Temp 36.4 Pulse 69 74 Resp 9 17 B/P (MAP) 90/67 (75) 117/99 (105) O2 Delivery Nasal Cannula Nasal Cannula Nasal Cannula O2 Flow Rate 4.00 4.00 4.00 12/06/18 12/06/18 12/06/18 12/06/18 07:00 07:00 08:00 08:00 Pulse 71 64 65 Resp 12 21 B/P (MAP) 114/81 (92) 131/97 (108) Pulse Ox 97 98 O2 Delivery Nasal Cannula Nasal Cannula Nasal Cannula O2 Flow Rate 4.00 4.00 4.00 12/06/18 12/06/18 12/06/18 12/06/18 09:00 09:10 10:00 11:56 Temp 36.5 Pulse 92 82 80 Resp 18 21 20 B/P (MAP) 118/75 (89) 131/75 (93) 140/82 (101) Pulse Ox 96 99 94 96 O2 Delivery Nasal Cannula Nasal Cannula Nasal Cannula Nasal Cannula O2 Flow Rate 4.00 4.00 4.00 4.00 12/06/18 12/06/18 11:56 12:29 Pulse 82 Pulse Ox 96 O2 Delivery Nasal Cannula O2 Flow Rate 4.00 12/06/18 00:00 Intake Total 630 ml Output Total 1300 ml Balance -670 ml Constitutional: AAO x 3, well-nourished Respiratory: No accessory muscle use, No respiratory distress; chest expansion is symmetric, chest is bilaterally symmetric, lungs clear to auscultation Cardiovascular: No JVD; S1 and S2 Gastrointestional: No tender; soft, round, audible bowel sounds Extremities: no lower extremity edema bilateral Neurologic/Psychiatric: grossly intact Skin: other (Dressing to left leg D&I - not removed) Results/Procedures: Labs Laboratory Tests 12/05/18 13:48: Blood Gas Puncture Site RIGHT RADIAL, Blood Gas Patient Temperature 36.4, Arterial Blood pH 7.40, Arterial Blood Partial Pressure CO2 37, Arterial Blood Partial Pressure O2 68L, Arterial Blood HCO3 23, Arterial Blood Total CO2 24.1, Arterial Blood Oxygen Saturation 93L, Arterial Blood Base Excess -1.3, Keyur Test POSITIVE, Blood Gas Ventilator Setting NO, Blood Gas Inspired Oxygen 4 L 12/05/18 14:45: Urine Color YELLOW, Urine Clarity CLEAR, Urine pH 6.5, Urine Specific [place] 1.010L, Urine Protein NEGATIVE, Urine Glucose (UA) NEGATIVE, Urine Ketones NEGATIVE, Urine Nitrite NEGATIVE, Urine Bilirubin NEGATIVE, Urine Urobilinogen NORMAL, Urine Leukocyte Esterase NEGATIVE, Urine RBC (Auto) NEGATIVE, Urine RBC NONE, Urine WBC NONE, Urine Crystals NONE, Urine Bacteria NEGATIVE, Urine Casts NONE, Urine Mucus NEGATIVE, Urine Culture Indicated NO 12/05/18 15:12: White Blood Count 9.6, Red Blood Count 3.30L, Hemoglobin 10.4L, Hematocrit 32L, Mean Corpuscular Volume 96, Mean Corpuscular Hemoglobin 32, Mean Corpuscular Hemoglobin Concent 33, Red Cell Distribution Width 14.8H, Platelet Count 195, Mean Platelet Volume 10.4, Neutrophils (%) (Auto) 82H, Lymphocytes (%) (Auto) 12, Monocytes (%) (Auto) 5, Eosinophils (%) (Auto) 0, Basophils (%) (Auto) 0, Neutrophils # (Auto) 7.9H, Lymphocytes # (Auto) 1.2, Monocytes # (Auto) 0.5, Eosinophils # (Auto) 0.0, Basophils # (Auto) 0.0, D-Dimer 3.37H, Sodium Level 138, Potassium Level 4.4, Chloride Level 107, Carbon Dioxide Level 24, Anion Gap 7, Blood Urea Nitrogen 21H, Creatinine 0.63, Estimat Glomerular Filtration Rate > 60, BUN/Creatinine Ratio 33, Glucose Level 116H, Lactic Acid Level 1.32, Calcium Level 8.6, Corrected Calcium 8.9, Total Bilirubin 0.4, Aspartate Amino Transf (AST/SGOT) 31, Alanine Aminotransferase (ALT/SGPT) 19, Alkaline Phosphatase 71, Troponin I 0.532*H, B-Type Natriuretic Peptide 83.5, Total Protein 6.2L, Albumin 3.6 12/06/18 07:05: White Blood Count 7.3, Red Blood Count 3.14L, Hemoglobin 9.8L, Hematocrit 31L, Mean Corpuscular Volume 98, Mean Corpuscular Hemoglobin 31, Mean Corpuscular Hemoglobin Concent 32, Red Cell Distribution Width 15.1H, Platelet Count 160, Mean Platelet Volume 10.3, Neutrophils (%) (Auto) 54, Lymphocytes (%) (Auto) 39, Monocytes (%) (Auto) 7, Eosinophils (%) (Auto) 1, Basophils (%) (Auto) 0, Neutrophils # (Auto) 3.9, Lymphocytes # (Auto) 2.9, Monocytes # (Auto) 0.5, Eosinophils # (Auto) 0.0, Basophils # (Auto) 0.0, Sodium Level 139, Potassium Level 4.0, Chloride Level 108H, Carbon Dioxide Level 24, Anion Gap 7, Blood Urea Nitrogen 18, Creatinine 0.61, Estimat Glomerular Filtration Rate > 60, BUN/Creatinine Ratio 30, Glucose Level 88, Calcium Level 8.0L, Corrected Calcium 8.5, Total Bilirubin 0.3, Aspartate Amino Transf (AST/SGOT) 27, Alanine Aminotransferase (ALT/SGPT) 18, Alkaline Phosphatase 69, Total Protein 5.7L, Albumin 3.4, Phosphorus Level 2.8, Magnesium Level 1.9 Procedures NAME: HOLLY BUCKNER [facility] REC#: [id number] PT STATUS: ADM IN : 1940 PHYSICIAN: VIJI HELM DO ADMIT DATE: 12/05/18/ICU Draft Date of Exam:12/06/18 CHEST 1 VIEW, AP/PA ONLY INDICATION: Shortness of breath FINDINGS: The heart size upper limits. There is a large retrocardiac hernia. The lungs clear. No failure, effusion or pneumothorax. IMPRESSION: Upper limits heart size but no overt failure. No pneumonia or pleural pathology. Retrocardiac hernia noted Dictated on workstation # [id number] Dict: 12/06/18611 Trans: 12/06/18 0710 KASIA [id number] Interpreted by: DELL MATT Electronically signed by: NAME: HOLLY BUCKNER [facility] REC#: [id number] PT STATUS: ADM IN : 1940 PHYSICIAN: VIJI HELM DO ADMIT DATE: 12/05/18/ICU Signed Date of Exam: 12/05/18 CT ANGIO CHEST W INDICATION: Shortness of breath, recent knee replacement. TECHNIQUE: CTA chest obtained with IV contrast bolus and axial slices and MIP reconstructions. FINDINGS: The study is positive for pulmonary emboli. There are ixiob-an-ztefcopn emboli in the left lower lobe pulmonary arterial branches as well as an embolus in one of the smaller branches of the left upper lobe. There is a nonocclusive thrombus in the right main pulmonary artery laterally as well as some smaller emboli in the right lower lobe branches. There is no evidence of aortic dissection or aneurysm. Great vessel origins are patent. There is no pleural or pericardial fluid. A large hiatal hernia is present. There is no mediastinal adenopathy. There is no overt pulmonary consolidation. There is some atelectatic change in the right base. There is no overt right heart strain. IMPRESSION: Evidence of moderate-sized pulmonary emboli, as described above. There is no aortic aneurysm or dissection. There is a large hiatal hernia. There is some mild right basilar atelectasis. Report given to ICU nurse (Isha) at 5:47 p.m. 12/05/2018/cb Dictated by: Dictated on workstation # [id number] Dict: 12/05/188 Trans: 12/05/181937 Interpreted by: DB WATKINS MD Electronically signed by: DB WATKINS MD 12/05/181937 NAME: HOLLY BUCKNER [facility] REC#: [id number] PT STATUS: ADM IN : 1940 PHYSICIAN: VIJI HELM DO ADMIT DATE: 12/05/18/ICU Signed Date of Exam: 12/05/18 US VENOUS LOWER EXT YASEMIN PROCEDURE: US Venous Lower Ext Yasemin. TECHNIQUE: Multiple real-time grayscale images were obtained over the lower extremities in various projections, bilaterally. Additional duplex Doppler and color Doppler images were also obtained. INDICATION: Pulmonary embolism. FINDINGS: There is no evidence of right or left lower extremity DVT. Both lower extremity deep venous systems demonstrate normal compressibility with normal response to augmentation and Valsalva. No fluid collection or mass is seen. IMPRESSION: No evidence of right or left lower extremity DVT. Dictated by: Dictated on workstation # [id number] Dict: 12/05/18 1558 Trans: 12/06/18814 Interpreted by: SVETLANA HAILE MD Electronically signed by: SVETLANA HAILE MD 12/06/18814 A/P: Assessment: Elevated troponin - likely secondary to PE PE - [id number]-[id number] emboli in the left lower lobe pulmonary arterial branches as well as an embolus in one of the smaller branches of the left upper lobe. There is a nonocclusive thrombus in the right main pulmonary artery laterally as well as some smaller emboli in the right lower lobe branches. Per CTA of the chest on 12-05-18 OAC with Eliquis (started on 12-05-18) Echocardiogram of Dec 05, 2018 shows LVEF 65-70%. No regional wall motion abnormalities. Grade 2 diastolic dysfunction. Mild to mod RV vol overload and pressure overload. RA dilated Mild to mod TR. RVSP 34 mmHg. IVC dilated. No evidence of DVT on LE venous doppler of 12-05-18 H/O recent L TKR on 12-04-[address] Saravia at [facility] H/O R TKR in 2014 H/O R rotator cuff repair in 2012 Tobaccoism - cessation advised Plan: * Continue OAC with Eliquis d/t PE seen on CTA of the chest on 12-05-18 * Monitor lab closely * Continue OAC TEAGAN PEREZ Dec 06, 2018 08:44
[2018-12-06] MEDS: RT-ALBUTEROL/IPRATROPIUM 3 ML (DUONEB) VIAL INH SCH ×2 (09:10→19:58)
[2018-12-06] MEDS: SENNA W/DOCUSATE (SENOKOT S) TABLET PO SCH ×2 (09:18→19:18)
[2018-12-06] MEDS: DOCUSATE SODIUM 100 MG (COLACE) CAP PO SCH ×2 (09:18→19:18)
[2018-12-06] MEDS: POLYETHYLENE GLYCOL 17 GM (MIRALAX) PACK PO SCH ×2 (09:19→19:18)
--- NOTE | 2018-12-06 10:16 | Progress Note - Cardiology ---
Cardiology SOAP Progress Note Subjective: Shortness of breath better than yesterday No cp or palp or syncope Objective: I&O/Vital Signs 12/05/18 12/06/18 12/06/18 12/06/18 23:00 00:00 00:00 00:51 Pulse 100 87 76 Resp 29 19 B/P (MAP) 126/92 (103) 134/93 (107) Pulse Ox 94 94 O2 Delivery Nasal Cannula Nasal Cannula Nasal Cannula O2 Flow Rate 4.00 4.00 4.00 12/06/18 12/06/18 12/06/18 12/06/18 01:00 02:00 03:00 04:00 Pulse 75 74 72 Resp 13 14 16 B/P (MAP) 105/72 (83) 116/81 (93) 99/65 (76) Pulse Ox 94 95 94 O2 Delivery Nasal Cannula Nasal Cannula Nasal Cannula Nasal Cannula O2 Flow Rate 4.00 4.00 4.00 4.00 12/06/18 12/06/18 12/06/18 12/06/18 04:00 04:00 05:00 06:00 Temp 36.4 Pulse 67 69 74 Resp 13 9 17 B/P (MAP) 98/77 (84) 90/67 (75) O2 Delivery Nasal Cannula Nasal Cannula Nasal Cannula O2 Flow Rate 4.00 4.00 4.00 12/06/18 12/06/18 12/06/18 12/06/18 06:04 07:00 07:00 08:00 Pulse 71 64 65 Resp 12 21 B/P (MAP) 117/99 (105) 114/81 (92) 131/97 (108) Pulse Ox 97 O2 Delivery Nasal Cannula Nasal Cannula Nasal Cannula O2 Flow Rate 4.00 4.00 4.00 12/06/18 12/06/18 09:00 09:10 Pulse 92 Resp 18 B/P (MAP) 118/75 (89) Pulse Ox 96 99 O2 Delivery Nasal Cannula Nasal Cannula O2 Flow Rate 4.00 4.00 12/06/18 00:00 Intake Total 630 ml Output Total 1300 ml Balance -670 ml Constitutional: AAO x 3, well-nourished Respiratory: No accessory muscle use, No respiratory distress; chest expansion is symmetric, chest is bilaterally symmetric, lungs clear to auscultation Cardiovascular: No JVD; S1 and S2 Gastrointestional: No tender; soft, round, audible bowel sounds Extremities: no lower extremity edema bilateral Neurologic/Psychiatric: grossly intact Skin: other (Dressing to left leg D&I - not removed) Results/Procedures: Labs Laboratory Tests 12/05/18 13:48: Blood Gas Puncture Site RIGHT RADIAL, Blood Gas Patient Temperature 36.4, Arterial Blood pH 7.40, Arterial Blood Partial Pressure CO2 37, Arterial Blood Partial Pressure O2 68L, Arterial Blood HCO3 23, Arterial Blood Total CO2 24.1, Arterial Blood Oxygen Saturation 93L, Arterial Blood Base Excess -1.3, Keyur Test POSITIVE, Blood Gas Ventilator Setting NO, Blood Gas Inspired Oxygen 4 L 12/05/18 14:45: Urine Color YELLOW, Urine Clarity CLEAR, Urine pH 6.5, Urine Specific [place] 1.010L, Urine Protein NEGATIVE, Urine Glucose (UA) NEGATIVE, Urine Ketones NEGATIVE, Urine Nitrite NEGATIVE, Urine Bilirubin NEGATIVE, Urine Urobilinogen NORMAL, Urine Leukocyte Esterase NEGATIVE, Urine RBC (Auto) NEGATIVE, Urine RBC NONE, Urine WBC NONE, Urine Crystals NONE, Urine Bacteria NEGATIVE, Urine Casts NONE, Urine Mucus NEGATIVE, Urine Culture Indicated NO 12/05/18 15:12: White Blood Count 9.6, Red Blood Count 3.30L, Hemoglobin 10.4L, Hematocrit 32L, Mean Corpuscular Volume 96, Mean Corpuscular Hemoglobin 32, Mean Corpuscular Hemoglobin Concent 33, Red Cell Distribution Width 14.8H, Platelet Count 195, Mean Platelet Volume 10.4, Neutrophils (%) (Auto) 82H, Lymphocytes (%) (Auto) 12, Monocytes (%) (Auto) 5, Eosinophils (%) (Auto) 0, Basophils (%) (Auto) 0, Neutrophils # (Auto) 7.9H, Lymphocytes # (Auto) 1.2, Monocytes # (Auto) 0.5, Eosinophils # (Auto) 0.0, Basophils # (Auto) 0.0, D-Dimer 3.37H, Sodium Level 138, Potassium Level 4.4, Chloride Level 107, Carbon Dioxide Level 24, Anion Gap 7, Blood Urea Nitrogen 21H, Creatinine 0.63, Estimat Glomerular Filtration Rate > 60, BUN/Creatinine Ratio 33, Glucose Level 116H, Lactic Acid Level 1.32, Calcium Level 8.6, Corrected Calcium 8.9, Total Bilirubin 0.4, Aspartate Amino Transf (AST/SGOT) 31, Alanine Aminotransferase (ALT/SGPT) 19, Alkaline Phosphatase 71, Troponin I 0.532*H, B-Type Natriuretic Peptide 83.5, Total Protein 6.2L, Albumin 3.6 12/06/18 07:05: White Blood Count 7.3, Red Blood Count 3.14L, Hemoglobin 9.8L, Hematocrit 31L, Mean Corpuscular Volume 98, Mean Corpuscular Hemoglobin 31, Mean Corpuscular Hemoglobin Concent 32, Red Cell Distribution Width 15.1H, Platelet Count 160, Mean Platelet Volume 10.3, Neutrophils (%) (Auto) 54, Lymphocytes (%) (Auto) 39, Monocytes (%) (Auto) 7, Eosinophils (%) (Auto) 1, Basophils (%) (Auto) 0, Neutrophils # (Auto) 3.9, Lymphocytes # (Auto) 2.9, Monocytes # (Auto) 0.5, Eosinophils # (Auto) 0.0, Basophils # (Auto) 0.0, Sodium Level 139, Potassium Level 4.0, Chloride Level 108H, Carbon Dioxide Level 24, Anion Gap 7, Blood Urea Nitrogen 18, Creatinine 0.61, Estimat Glomerular Filtration Rate > 60, BUN/Creatinine Ratio 30, Glucose Level 88, Calcium Level 8.0L, Corrected Calcium 8.5, Total Bilirubin 0.3, Aspartate Amino Transf (AST/SGOT) 27, Alanine Aminotransferase (ALT/SGPT) 18, Alkaline Phosphatase 69, Total Protein 5.7L, Albumin 3.4, Phosphorus Level 2.8, Magnesium Level 1.9 Laboratory Tests 12/05/18 15:12 12/06/18 07:05 A/P: Assessment: Elevated troponin - secondary to PE PE - mfgbb-oc-nyobomdo emboli in the left lower lobe pulmonary arterial branches as well as an embolus in one of the smaller branches of the left upper lobe. There is a nonocclusive thrombus in the right main pulmonary artery laterally as well as some smaller emboli in the right lower lobe branches. Per CTA of the chest on 12-05-18 OAC with Eliquis (started on 12-05-18) Echocardiogram of Dec 05, 2018 shows LVEF 65-70%. No regional wall motion abnormalities. Grade 2 diastolic dysfunction. Mild to mod RV vol overload and pressure overload. RA dilated Mild to mod TR. RVSP 34 mmHg. IVC dilated. No evidence of DVT on LE venous doppler of 12-05-18 H/O recent L TKR on 12-04-[address] Saravia at [facility] H/O R TKR in 2014 H/O R rotator cuff repair in 2012 Tobaccoism - cessation advised Plan: * Continue OAC with Eliquis d/t PE seen on CTA of the chest on 12-05-18 * Monitor lab closely * I discussed our management plan with her and her and answered CV- related questions LUCY PIPER MD FACP FAC CCDS Dec 06, 2018 10:16
--- NOTE | 2018-12-06 10:56 | NUR ---
Report called to Mindi LOPEZ on Med Surg. Pt currently with PT, will transfer when done to room 429.
[2018-12-06] MEDS: APIXABAN 5 MG (ELIQUIS) TABLET PO SCH ×2 (11:02→20:30)
--- NOTE | 2018-12-06 11:05 | Progress Note ---
KATHY URRUTIA [facility] 12/06/18 1105: Progress Note CC: SOB after left knee replacement surgery * Pt reports having some knee pain last night that made it difficult to sleep at times * She was informed of her diagnosis of a blood clot in her lungs and seemed pleased with the care she has received * She reports no other complaints * Denies any SOB,cough, chest pain, palpitations, nausea, vomiting, calf tenderness, fever, and chills * She states she has not had a bowel movement yet ASHA HELM DO 12/06/182053: Supervisory-Addendum Brief Verification & Attestation Participated in pt care: history, MDM, physical Personally performed: exam, history, MDM, supervision of care Care discussed with: Medical Student Procedures: n/a Results interpretation: Verified all documentation Verification and Attestation of Medical Student E/M Service A medical student performed and documented this service in my presence. I reviewed and verified all information documented by the medical student and made modifications to such information, when appropriate. I personally performed the physical exam and medical decision making. Asha Helm, Dec 06, 2018,20:[address] [facility] Dec 06, 2018 11:05 ASHA HELM DO Dec 06, 2018 20:54
--- NOTE | 2018-12-06 11:15 | NUR ---
Pt transported via w/c to room 429. All patient belongings with patient or sent with .
--- NOTE | 2018-12-06 11:15 | NUR ---
RECEIVED FROM ICU. ALERT AND ORIENTED, SITTING ON SIDE OF BED, PEDAL PULSE PRESENT, DRESSING TO LEFT KNEE SATURATED, DRESSING CHANGED, SMALL AMOUNT BLEEDING FROM PUNCTURE SITES LOWER LEFT KNEE, IV SITE WITHOUT REDNESS OR SWELLING, IV INFUSING AT 125ML HOUR, O2 ON PER NC AT 4 L, TELEMETRY ON, SCD'S APPLIED, ICE PACKS TO INCISION, CALL LIGHT WITHIN REACH
--- NOTE | 2018-12-06 12:01 | Physical Therapy Evaluation ---
PT Evaluation-General Medical Diagnosis Admission Date Dec 05, 2018 at 13:00 Medical Diagnosis: PE Onset Date: Dec 05, 2018 Therapy Diagnosis Therapy Diagnosis: generalized weakness/debility Precautions Precautions/Isolations: Standard Precautions Weight Bear Status Right Lower Extremity: Right Weight Bearing/Tolerated Left Lower Extremity: Left Weight Bearing/Tolerated Referral Physician: Brandan Reason for Referral: Evaluation/Treatment Medical History Pertinent Medical History: GERD, Smoking Additional Medical History left TKR Current History admit from [facility] secondary to multiple PE's Reviewed History: Yes Social History Home: Single Level Current Living Status: Spouse Entry Into Home: Level Entry Prior Prior Level of Function SCALE: Activities may be completed with or without assistive devices. 6-Atfehcehou-vigkymc completes the activity by him/herself with no assistance from a helper. 5-Set-up or Clean-up Assistance-helper sets up or cleans up; patient completes activity. [place] assists only prior to or following the activity. 4-Supervision or Touching Assistance-helper provides verbal cues and/or touching/steadying and/or contact guard assistance as patient completes activity. Assistance may be provided throughout the activity or intermittently. 3-Partial/Moderate Assistance-helper does LESS THAN HALF the effort. [place] lifts, holds or supports trunk or limbs, but provides less than half the effort. 2-Substantial/Maximal Assistance-helper does MORE THAN HALF the effort. [place] lifts or holds trunk or limbs and provides more than half the effort. 6-Ywtxbftag-ijqeix does ALL the effort. Patient does none of the effort to complete the activity. Or, the assistance of 2 or more helpers is required for the patient to complete the activity. If activity was not attempted, code reason: 7-Patient Refused. 9-Not Applicable-not attempted and the patient did not perform the activity before the current illness, exacerbation or injury. 10-Not Attempted due to Environmental Limitations-(lack of equipment, weather restraints, etc.). 88-Not Attempted due to Medical Conditions or Safety Concerns. Bed Mobility: 7 Transfers (B,C,W/C): 7 Gait: 7 Stairs: 7 Indoor Mobility (Ambulation): Independent Prior Devices Use: None PT Evaluation-Current Subjective Patient is very motivated to participate with PT. No c/o. Pain Numeric Pain Scale: 5-Moderate Pain Location: Left Location Body Site: Knee Pain Description: Acute Objective Patient Orientation: Normal For Age Problem Solving: Good Attachments: IV ROM/Strength ROM Lower Extremities left knee 0-72 degrees in sit/right LE WFL Strength Lower Extremities left LE 3/5 grossly/right LE 5/5 Integumentary/Posture Integumentary incision left knee from TKR Bowel Incontinence: No Bladder Incontinence: No Posture WFL Neuromuscular (Tone, Coordination, Reflexes) grossly intact Sensory Vision: Wears Glasses Hearing: Functional Sensation Right Lower Extremit: Intact Sensation Left Lower Extremity: Intact Transfers Roll Left to Right (QC): 6 Sit to Lying (QC): 6 Lying to Sitting/Side of Bed(Q: 6 Sit to Stand (QC): 6 Chair/Kcp-fk-Hcpnz Xfer(QC): 6 Gait Does the Patient Walk?: Yes Mode of Locomotion: Walk Anticipated Mode of Locomotion: Walk Distance (FIM): 3=150 ft Walk 10 feet (QC): 5 Walk 50 ft with 2 Turns(QC): 5 Walk 150 ft (QC): 5 Distance: 175' Gait Assistive Device: FWW Comments/Gait Description steady, antalgic, functional gait sequence Balance Sitting Static: Normal Sitting Dynamic: Normal Standing Static: Normal Standing Dynamic: Normal Picking up an Object (QC): 6 Treatment CPM 0-80 degrees Assessment/Needs 78 y.o. female, will benefit from skilled PT to address functional strength and mobility to improve current LOF to safely return to home with spouse at maximum LOF. Rehab Potential: Fair PT Shelter Goals Shelter Goals PT Cap And Hat Production Supervisor Goals Time Frame: Dec 13, 2018 Sit to Lying (QC): 6 Lying-Sitting on Side/Bed(QC): 6 Sit to Stand (QC): 6 Roll Left to Right (QC): 6 Chair/Clz-ff-Qbydk Xfer(QC): 6 Does the Patient Walk: Yes Distance: 300' Walk 10 feet (QC): 6 Walk 10ft-Uneven Surface(QC): 6 Walk 50ft with 2 Turns (QC): 6 Walk 150 ft (QC): 6 Gait Assistive Device: FWW PT Plan Treatment/Plan Treatment Plan: Continue Plan of Care Treatment Plan: Education, Functional Activity Lesly, Functional Strength, Gait, Safety, Therapeutic Exercise, Transfers Treatment Duration: Dec 13, 2018 Frequency: 11 times per week Estimated Hrs Per Day: .5 hour per day Patient and/or Family Agrees t: Yes Time/GCodes Time In: 1025 Time Out: 1100 Total Billed Treatment Time: 35 Total Billed Treatment 1 visit EVModC 35 min CPM/PADS ANN LEIVA PT Dec 06, 2018 12:00
--- NOTE | 2018-12-06 14:34 | Occupational Therapy Eval ---
OT Evaluation-General/PLF Medical Diagnosis Admission Date Dec 05, 2018 at 13:00 Medical Diagnosis: PE Onset Date: Dec 05, 2018 Therapy Diagnosis Therapy Diagnosis: decreased self care skills Precautions Precautions/Isolations: Standard Precautions Safety Interventions: None Referral Physician: Brandan Medical History Pertinent Medical History: GERD, Smoking Additional Medical History right TKA, right rotator cuff repair. Current History Pt s/p left TKA with post op PE. Social History Home: Single Level Current Living Status: Spouse Entry Into Home: Level Entry ADL-Prior Level of Function SCALE: Activities may be completed with or without assistive devices. 0-Ojynnyvjbv-xupcxto completes the activity by him/herself with no assistance from a helper. 5-Set-up or Clean-up Assistance-helper sets up or cleans up; patient completes activity. [place] assists only prior to or following the activity. 4-Supervision or Touching Assistance-helper provides verbal cues and/or touching/steadying and/or contact guard assistance as patient completes activity. Assistance may be provided throughout the activity or intermittently. 3-Partial/Moderate Assistance-helper does LESS THAN HALF the effort. [place] lifts, holds or supports trunk or limbs, but provides less than half the effort. 2-Substantial/Maximal Assistance-helper does MORE THAN HALF the effort. [place] lifts or holds trunk or limbs and provides more than half the effort. 2-Dwuvaesaf-gxrfhc does ALL the effort. Patient does none of the effort to complete the activity. Or, the assistance of 2 or more helpers is required for the patient to complete the activity. If activity was not attempted, code reason: 7-Patient Refused. 9-Not Applicable-not attempted and the patient did not perform the activity before the current illness, exacerbation or injury. 10-Not Attempted due to Environmental Limitations-(lack of equipment, weather restraints, etc.). 88-Not Attempted due to Medical Conditions or Safety Concerns. ADL PLOF Comments Pt reports being independent prior to surgery. Self Care: Independent Functional Cognition: Independent DME/Equipment: Bath Chair, Shower, Tall Toilet OT Current Status Subjective Pt sitting EOB after PT, agrees to therapy. Pt reports 3/10 pain in left knee. Mental Status/Objective Patient Orientation: Normal For Age Attachments: Oxygen (4L) Current Upper Extremity ROM Grossly WFL Upper Extremity Coordination Intact Upper Extremity Sensation Intact per pt report ADL-Treatment ADL-Current Pt doffed/donned socks while seated EOB. Pt sit to stand with modified independence. Demonstrates good balance with FWW. Pt declined need to use restroom at this time. Pt states she will take a sponge bath and change clothes later today after she has rested. Declined ADLs at this time. Pt performed sit to supine with modified independence. Resting in bed with needs met and spouse present after session. Eating (QC): 6 (per pt report) On/Off Footwear (QC): 5 Education OT Patient Education: Rehab process Teaching Recipient: Patient Teaching Methods: Discussion Response to Teaching: Verbalize Understanding OT Short Term Goals Short Term Goals 1=Demonstrate adherence to instructed precautions during ADL tasks. 2=Patient will verbalize/demonstrate understanding of assistive devices/modifications for ADL. 3=Patient will improve strength/tolerance for activity to enable patient to perform ADL's. OT Nursing Home Goals Nursing Home Goals Time Frame: Dec 13, 2018 Oral Hygiene (QC): 6 Shower/Bathe Self (QC): 5 Upper Body Dressing (QC): 6 Lower Body Dressing (QC): 6 On/Off Footwear (QC): 6 Toileting Hygiene (QC): 6 Toilet/Commode Transfer (QC): 6 Additional Goals: 1-Demonstrate ADL Tasks, 2-Verbalize Understanding, 3- ImproveStrength/Lesly 1=Demonstrate adherence to instructed precautions during ADL tasks. 2=Patient will verbalize/demonstrate understanding of assistive devices/modifications for ADL. 3=Patient will improve strength/tolerance for activity to enable patient to perform ADL's. OT Education/Plan Problem List/Assessment Assessment: Decreased Activ Tolerance, Impaired I ADL's Pt to benefit from skilled OT intervention for ADL training, transfers, strengthening, and safety education to increase level of independence and allow safe discharge home. Discharge Recommendations Plan/Recommendations: Continue POC Treatment Plan/Plan of Care Treatment,Training & Education: Yes Patient would benefit from OT for education, treatment and training to promote independence in ADL's, mobility, safety and/or upper extremity function for ADL's. Plan of Care: ADL Retraining, Functional Mobility, UE Funct Exercise/Act Treatment Duration: Dec 13, 2018 Frequency: 5 times per week Estimated Hrs Per Day: .25 hour per day Rehab Potential: Fair Time/GCodes Start Time: 13:50 Stop Time: 14:08 Total Time Billed (hr/min): 18 Billed Treatment Time 1 visit, EVL(18minutes) ABBY MATTHEWS OT Dec 06, 2018 14:34
--- NOTE | 2018-12-06 14:59 | Physical Therapy Daily Note ---
PT Daily Note-Current Subjective Patient is very agreeable to participate with PT. Pain Numeric Pain Scale: 5-Moderate Pain Location: Left Location Body Site: Knee Pain Description: Acute Mental Status Patient Orientation: Normal For Age Attachments: IV Transfers SCALE: Activities may be completed with or without assistive devices. 0-Xgvaedgzwe-blmizti completes the activity by him/herself with no assistance from a helper. 5-Set-up or Clean-up Assistance-helper sets up or cleans up; patient completes activity. [place] assists only prior to or following the activity. 4-Supervision or Touching Assistance-helper provides verbal cues and/or touching/steadying and/or contact guard assistance as patient completes activity. Assistance may be provided throughout the activity or intermittently. 3-Partial/Moderate Assistance-helper does LESS THAN HALF the effort. [place] lifts, holds or supports trunk or limbs, but provides less than half the effort. 2-Substantial/Maximal Assistance-helper does MORE THAN HALF the effort. [place] lifts or holds trunk or limbs and provides more than half the effort. 0-Nbnlugcil-qqmkij does ALL the effort. Patient does none of the effort to complete the activity. Or, the assistance of 2 or more helpers is required for the patient to complete the activity. If activity was not attempted, code reason: 7-Patient Refused. 9-Not Applicable-not attempted and the patient did not perform the activity before the current illness, exacerbation or injury. 10-Not Attempted due to Environmental Limitations-(lack of equipment, weather restraints, etc.). 88-Not Attempted due to Medical Conditions or Safety Concerns. Roll Left to Right (QC): 6 Sit to Lying (QC): 6 Sit to Stand (QC): 6 Chair/Eyy-yr-Wxpwh Xfer(QC): 6 Bed to/from Chair: 6 Weight Bearing Right Lower Extremity: Right Weight Bearing/Tolerated Left Lower Extremity: Left Weight Bearing/Tolerated Gait Training Does the Patient Walk?: Yes Distance: 250' Walk 10 feet (QC): 6 Walk 50 ft with 2 Turns(QC): 6 Walk 150 ft (QC): 6 Gait Assistive Device: FWW reciprocal pattern Exercises Supine Ex: Ankle pumps, Quad Set, Heel Slides, Straight leg raise Supine Reps: 15 Seated Therapy Exercises: Ankle pumps, Long arc quads Seated Reps: 15 Treatments CPM 0-70 degrees Assessment Current Status: Excellent Progress PT Assisted Goals Assisted Goals PT [place] Waitress/Waiter Goals Time Frame: Dec 13, 2018 Sit to Lying (QC): 6 Lying-Sitting on Side/Bed(QC): 6 Sit to Stand (QC): 6 Roll Left to Right (QC): 6 Chair/Rvu-pg-Hqdwx Xfer(QC): 6 Does the Patient Walk: Yes Distance: 300' Walk 10 feet (QC): 6 Walk 10ft-Uneven Surface(QC): 6 Walk 50ft with 2 Turns (QC): 6 Walk 150 ft (QC): 6 Gait Assistive Device: FWW PT Plan Treatment/Plan Treatment Plan: Continue Plan of Care Treatment Plan: Education, Functional Activity Lesly, Functional Strength, Gait, Safety, Therapeutic Exercise, Transfers Treatment Duration: Dec 13, 2018 Frequency: 11 times per week Estimated Hrs Per Day: .5 hour per day Patient and/or Family Agrees t: Yes Time/GCodes Time In: 1335 Time Out: 1350 Total Billed Treatment Time: 15 Total Billed Treatment 1 visit FA 15 min ANN LEIVA PT Dec 06, 2018 14:59
--- NOTE | 2018-12-06 20:03 | NUR ---
patients o2 was decreased from 4 l to 3 l nc at this time by RT Joi
[2018-12-07] VITALS: BP 130/82
[2018-12-07] MEDS: HYDROcodone/APAP 5 MG/325 MG (LORTAB) TAB PO PRN ×6 (01:12→23:04)
[2018-12-07] MEDS: fentaNYL INJECTION 100 MCG/2 ML AMP IVP PRN (01:14)
[2018-12-07 04:00] VITALS: BP 147/84
--- NOTE | 2018-12-07 06:27 | Pulmonary Progress Note ---
Sepsis Event Evaluation Height, Weight, BMI Height: '" Weight: lbs. oz. kg; 29.29 BMI Method: Focused Exam Lactate Level 12/05/18 15:12: Lactic Acid Level 1.32 Exam Exam Vital Signs Date Time Temp Pulse Resp B/P (MAP) Pulse Ox O2 Delivery O2 Flow Rate FiO2 12/07/18 04:00 36.6 82 16 147/84 (105) 95 Nasal Cannula 2.00 12/07/18 01:00 87 12/07/18 00:00 36.6 85 14 130/82 (98) 94 Nasal Cannula 2.00 12/06/18 21:26 Nasal Cannula 3.00 12/06/18 21:19 93 Nasal Cannula 3.00 12/06/18 20:00 36.9 91 18 155/83 (107) 97 Nasal Cannula 4.00 12/06/18 19:58 92 Nasal Cannula 4.00 12/06/18 19:00 95 12/06/18 16:00 36.4 72 18 125/79 (94) 96 Nasal Cannula 4.00 12/06/18 12:29 82 12/06/18 11:56 96 Nasal Cannula 4.00 12/06/18 11:56 36.5 80 20 140/82 (101) 96 Nasal Cannula 4.00 12/06/18 10:00 82 21 131/75 (93) 94 Nasal Cannula 4.00 12/06/18 09:10 99 Nasal Cannula 4.00 12/06/18 09:00 92 18 118/75 (89) 96 Nasal Cannula 4.00 12/06/18 08:00 98 Nasal Cannula 4.00 12/06/18 08:00 65 21 131/97 (108) 97 Nasal Cannula 4.00 12/06/18 07:00 64 12 114/81 (92) Nasal Cannula 4.00 12/06/18 07:00 71 I & O 12/07/18 07:00 Intake Total 3205 ml Output Total 2825 ml Balance 380 ml Height & Weight Height: '" Weight: lbs. oz. kg; 29.29 BMI Method: General Appearance: No Apparent Distress, WD/WN HEENT: PERRL/EOMI, Pharynx Normal Neck: Full Range of Motion, Non Tender, Supple Respiratory: Chest Non Tender, Normal Breath Sounds, No Accessory Muscle Use, No Respiratory Distress, Decreased Breath Sounds Cardiovascular: Regular Rate, Rhythm, No Edema, No Gallop Capillary Refill: Less Than 3 Seconds Gastrointestinal: normal bowel sounds, non tender, soft, no organomegaly Extremity: Normal Capillary Refill, Normal Inspection, Normal Range of Motion, No Pedal Edema Neurologic/Psychiatric: Alert, Oriented x3 Skin: Normal Color, Warm/Dry Lymphatic: No Adenopathy Results Lab Laboratory Tests 12/05/18 15:12 12/06/18 07:05 Assessment/Plan Assessment/Plan Acute bilateral PE - provoked - No prior episode - Eliquis. PT will need 3-6 mo of anticoagulation -Pt may need home oxygen -Continue oxygen therapy S/p TKR 12/04/18 Tobacco dependance -Education -Out pt testing AYUSH GALEANO DO Dec 07, 2018 06:27
[2018-12-07 06:49] LABS: BASOPHILS % (AUTO) 0 % (0-10); EOSINOPHILS # (AUTO) 0.1 10^3/uL (0.0-0.3); EOSINOPHILS % (AUTO) 1 % (0-10); HEMATOCRIT 31 % (35-52); HEMOGLOBIN 9.6 G/DL (11.5-16.0); LYMPHOCYTES # (AUTO) 1.8 X 10^3 (1.0-4.0); LYMPHOCYTES % (AUTO) 27 % (12-44); MEAN CORPUSCULAR HEMOGLOBIN 30 PG (25-34); MEAN CORPUSCULAR HGB CONC 31 G/DL (32-36); MEAN CORPUSCULAR VOLUME 97 FL (80-99); MEAN PLATELET VOLUME 9.7 FL (7.4-10.4); MONOCYTES # (AUTO) 0.5 X 10^3 (0.0-1.0); MONOCYTES % (AUTO) 8 % (0-12); NEUTROPHILS # (AUTO) 4.3 X 10^3 (1.8-7.8); NEUTROPHILS % (AUTO) 64 % (42-75); PLATELET COUNT 190 10^3/uL (130-400); RED CELL DISTRIBUTION WIDTH 15.2 % (10.0-14.5); WHITE BLOOD COUNT 6.7 10^3/uL (4.3-11.0)
[2018-12-07] MEDS: RT-ALBUTEROL/IPRATROPIUM 3 ML (DUONEB) VIAL INH SCH ×2 (07:02→19:47)
[2018-12-07 07:14] LABS: ALANINE AMINOTRANSFERASE 17 U/L (0-55); ALBUMIN 3.6 GM/DL (3.2-4.5); ALKALINE PHOSPHATASE 63 U/L (40-136); BILIRUBIN,TOTAL 0.5 MG/DL (0.1-1.0); BUN/CREATININE RATIO 15; CALCIUM 8.6 MG/DL (8.5-10.1); CARBON DIOXIDE 24 MMOL/L (21-32); CHLORIDE 107 MMOL/L (98-107); CREATININE SERUM 0.59 MG/DL (0.60-1.30); GFR ESTIMATED > 60; GLUCOSE 95 MG/DL (70-105); MAGNESIUM 1.8 MG/DL (1.6-2.4); PHOSPHORUS 2.7 MG/DL (2.3-4.7); POTASSIUM 3.7 MMOL/L (3.6-5.0); SODIUM 141 MMOL/L (135-145); TOTAL PROTEIN 6.2 GM/DL (6.4-8.2)
[2018-12-07 08:00] VITALS: BP 177/98
--- NOTE | 2018-12-07 08:58 | Physical Therapy Daily Note ---
PT Daily Note-Current Subjective Agreeable to PT. Reports she if feelng better each day. Transfers SCALE: Activities may be completed with or without assistive devices. 6-Bzavuxqjkd-byitpyx completes the activity by him/herself with no assistance from a helper. 5-Set-up or Clean-up Assistance-helper sets up or cleans up; patient completes activity. [place] assists only prior to or following the activity. 4-Supervision or Touching Assistance-helper provides verbal cues and/or touching/steadying and/or contact guard assistance as patient completes activity. Assistance may be provided throughout the activity or intermittently. 3-Partial/Moderate Assistance-helper does LESS THAN HALF the effort. [place] lifts, holds or supports trunk or limbs, but provides less than half the effort. 2-Substantial/Maximal Assistance-helper does MORE THAN HALF the effort. [place] lifts or holds trunk or limbs and provides more than half the effort. 2-Tiptpvulj-lioeli does ALL the effort. Patient does none of the effort to complete the activity. Or, the assistance of 2 or more helpers is required for the patient to complete the activity. If activity was not attempted, code reason: 7-Patient Refused. 9-Not Applicable-not attempted and the patient did not perform the activity before the current illness, exacerbation or injury. 10-Not Attempted due to Environmental Limitations-(lack of equipment, weather restraints, etc.). 88-Not Attempted due to Medical Conditions or Safety Concerns. SBA with functional bed mobility and sit to stand transfers. Pt did not need assist and completed safetly. Weight Bearing Right Lower Extremity: Right Weight Bearing/Tolerated Left Lower Extremity: Left Weight Bearing/Tolerated Gait Training Gait Assistive Device: FWW Pt ambulated x 200 ft with FWW on 2 l O2 with SBA. Skilled cues for safety and heel strike/toe off. Exercises Seated Therapy Exercises: Ankle pumps, Sit to stand, Long arc quads, Hip flexion, Hamstring Curls Seated Reps: 12 Treatments Pt on toilet post treatment with oxygen in situ and call light in reach. Assessment Current Status: Good Progress Progressing well with functional mobilotiy PT Senior Care Goals Senior Care Goals PT Senior Care Goals Time Frame: Dec 13, 2018 Sit to Lying (QC): 6 Lying-Sitting on Side/Bed(QC): 6 Sit to Stand (QC): 6 Roll Left to Right (QC): 6 Chair/Gjy-ml-Vpbbb Xfer(QC): 6 Does the Patient Walk: Yes Distance: 300' Walk 10 feet (QC): 6 Walk 10ft-Uneven Surface(QC): 6 Walk 50ft with 2 Turns (QC): 6 Walk 150 ft (QC): 6 Gait Assistive Device: FWW PT Plan Problem List Problem List: Activity Tolerance, Functional Strength, Safety, Balance, Gait, Transfer, Bed Mobility, ROM Treatment/Plan Treatment Plan: Continue Plan of Care Treatment Plan: Education, Functional Activity Lesly, Functional Strength, Gait, Safety, Therapeutic Exercise, Transfers Treatment Duration: Dec 13, 2018 Frequency: 11 times per week Estimated Hrs Per Day: .5 hour per day Patient and/or Family Agrees t: Yes Safety Risks/Education Patient Education: Safety Issues Teaching Recipient: Patient Teaching Methods: Discussion Response to Teaching: Return Demonstration Time/GCodes Time In: 810 Time Out: 835 Total Billed Treatment Time: 25 Total Billed Treatment visit GT 15 EX 10 SYLVIA GOYAL PT Dec 07, 2018 08:58
[2018-12-07] MEDS: POLYETHYLENE GLYCOL 17 GM (MIRALAX) PACK PO SCH ×2 (09:03→19:48)
[2018-12-07] MEDS: DOCUSATE SODIUM 100 MG (COLACE) CAP PO SCH ×2 (09:03→19:48)
[2018-12-07] MEDS: APIXABAN 5 MG (ELIQUIS) TABLET PO SCH ×2 (09:04→20:46)
[2018-12-07] MEDS: SENNA W/DOCUSATE (SENOKOT S) TABLET PO SCH ×2 (09:04→19:48)
--- NOTE | 2018-12-07 10:00 | NUR ---
WALKED IN PERALTA WITH WALKER, TOLERATED WELL, DRESSING CHANGED TO LEFT KNEE, SMALL AMOUNT DRAINAGE FROM PUNCTURE SITES, O2 ON PER NC AT 2 LITERS,
--- NOTE | 2018-12-07 11:02 | Progress Note - Cardiology ---
Cardiology SOAP Progress Note Subjective: Back pain, but no cp No significant shortness of breath No palp or syncope Objective: I&O/Vital Signs 12/07/18 12/07/18 12/07/18 12/07/18 00:00 01:00 04:00 07:00 Temp 36.6 36.6 Pulse 85 87 82 73 Resp 14 16 B/P (MAP) 130/82 (98) 147/84 (105) Pulse Ox 94 95 O2 Delivery Nasal Cannula Nasal Cannula O2 Flow Rate 2.00 2.00 12/07/18 12/07/18 07:02 08:00 Temp 36.9 Pulse 89 Resp 20 B/P (MAP) 177/98 (124) Pulse Ox 92 94 O2 Delivery Nasal Cannula Nasal Cannula O2 Flow Rate 2.00 2.00 12/07/18 00:00 Intake Total 1885 ml Output Total 925 ml Balance 960 ml Constitutional: AAO x 3, well-nourished Respiratory: No accessory muscle use, No respiratory distress; chest expansion is symmetric, chest is bilaterally symmetric, lungs clear to auscultation Cardiovascular: No JVD; S1 and S2 Gastrointestional: No tender; soft, round, audible bowel sounds Extremities: no lower extremity edema bilateral Neurologic/Psychiatric: grossly intact Skin: other (Dressing to left leg D&I - not removed) Results/Procedures: Labs Laboratory Tests 12/07/18 06:36: White Blood Count 6.7, Red Blood Count 3.17L, Hemoglobin 9.6L, Hematocrit 31L, Mean Corpuscular Volume 97, Mean Corpuscular Hemoglobin 30, Mean Corpuscular Hemoglobin Concent 31L, Red Cell Distribution Width 15.2H, Platelet Count 190, Mean Platelet Volume 9.7, Neutrophils (%) (Auto) 64, Lymphocytes (%) (Auto) 27, Monocytes (%) (Auto) 8, Eosinophils (%) (Auto) 1, Basophils (%) (Auto) 0, Neutrophils # (Auto) 4.3, Lymphocytes # (Auto) 1.8, Monocytes # (Auto) 0.5, Eos inophils # (Auto) 0.1, Basophils # (Auto) 0.0, Sodium Level 141, Potassium Level 3.7, Chloride Level 107, Carbon Dioxide Level 24, Anion Gap 10, Blood Urea Nitrogen 9, Creatinine 0.59L, Estimat Glomerular Filtration Rate > 60, BUN/Creatinine Ratio 15, Glucose Level 95, Calcium Level 8.6, Corrected Calcium 8.9, Phosphorus Level 2.7, Magnesium Level 1.8, Total Bilirubin 0.5, Aspartate Amino Transf (AST/SGOT) 30, Alanine Aminotransferase (ALT/SGPT) 17, Alkaline Phosphatase 63, Total Protein 6.2L, Albumin 3.6 Microbiology 12/05/18 Blood Culture - Preliminary, Resulted No growth 12/05/18 MRSA Screen - Final, Complete MRSA not isolated Laboratory Tests 12/05/18 15:12 12/06/18 07:05 12/07/18 06:36 A/P: Assessment: Elevated troponin - secondary to PE PE - lszmh-qz-fnqqvrqe emboli in the left lower lobe pulmonary arterial branches as well as an embolus in one of the smaller branches of the left upper lobe. There is a nonocclusive thrombus in the right main pulmonary artery laterally as well as some smaller emboli in the right lower lobe branches. Per CTA of the chest on 12-05-18 OAC with Eliquis (started on 12-05-18) Echocardiogram of Dec 05, 2018 shows LVEF 65-70%. No regional wall motion abnormalities. Grade 2 diastolic dysfunction. Mild to mod RV vol overload and pressure overload. RA dilated Mild to mod TR. RVSP 34 mmHg. IVC dilated. No evidence of DVT on LE venous doppler of 12-05-18 H/O recent L TKR on 12-04-[address] Saravia at [facility] H/O R TKR in 2014 H/O R rotator cuff repair in 2012 Tobaccoism - cessation advised Plan: * Continue OAC with Eliquis * Monitor lab closely * I again discussed our management plan with her and her and answered CV-related questions LUCY PIPER MD FACP [facility] CCDS Dec 07, 2018 11:02
[2018-12-07 12:00] VITALS: BP 137/82
--- NOTE | 2018-12-07 12:51 | Progress Note - Hospitalist ---
Subjective HPI/CC On Admission Date Seen by Provider: Dec 07, 2018 Time Seen by Provider: 12:30 CC: Dyspnea Note from HUMBLE Sim yesterday: Seen around 11:45 I was called by RN on my way to [place] for tachycardia of 130, abrupt onset of SOB and hypoxia, required 4 liters of O2 and had to be helped back in bed. This happened just abruptly She has no history of PE or DVT and does not take any prescription medication Has never had SOB like this I arrived at the bedside and ABG reveals 7. with confirmed hypoxia I suspect there to have been a dislodged DVT into a pulmonary emboli causing these symptoms or a pulmonary edema congestive heart failure versus acute coronary syndrome EKG reveals sinus tachycardia of 130 BP remained stable at 120/75 Heart rate of 130-90 Updated pt and and they choose to go to [place] [facility] in [place] where I can provide her care in the ICU I did confer with Dr. Beasley and Dr. Billings and they will expect her Put in all ICU orders, CT angiogram, B/L Lower extremity venous doppler, D- dimer, Troponin, BNP, Septic work-up, CBC, CMP, EKG and chest x-ray I already dosed her with Lovenox of 1mg/kg to cover for any type of pulmonary embolism I did confer with Dr. Saravia who did agree with the plan Afebrile, heart rate 90-130, BP 120/75, O2 sat of 83 % off O2 Tachycardic at 94 beats per minute, No murmur, CTAB, mild tachypnea but CTAB, Trace edema B/L lower extremities Home Meds Vitamin E 400IU Oral Capsule, Liquid Filled 400 INTERNATIONAL UNITS ORAL Daily Claritin 10MG Oral Tablet 10 MILLIGRAMS ORAL Every 24 hours as needed Meloxicam 7.5MG Oral Tablet 7.5 MILLIGRAMS ORAL Twice Daily Mucinex DM 60MG-1200MG Oral Tablet, Extended Release 1 EACH ORAL Every 24 hours as needed NexIUM 24HR 20MG Oral Capsule, Delayed Release 20 MILLIGRAMS ORAL Every 24 hours as needed Turmeric 1000MG-5MG Oral Capsule 1 EACH ORAL Three times a day Vitamin B12 5000 MCG Sublingual Tablet 5000 MCG SUBLINGUAL Daily Vitamin D3 5000 IU Oral Capsule 5000 IU ORAL Daily Zinc 50 MG Oral Tablet 50 MG ORAL Daily Blood Pressure: 128/84 LYING R ARM 12/05/2018 12:04 AFVSS, Pleasant, O x 3, anxious, tachypneic RRR, CTAB mild tachypneic No edema Labs: pH: 7.35 12/05/2018 11:21 O2 SAT: 90 % L 12/05/2018 11:21 BE: -5 mmol/L L 12/05/2018 11:21 TROPONIN: 0.05 Ng/ml H 12/05/2018 11:21 CREATININE: 0.6 mg/dl 12/05/2018 07:53 SODIUM: 137 mmol/L L 12/05/2018 07:53 HEMOGLOBIN: 10.9 gm/dl L 12/05/2018 07:53 A/P: 1. LEFT TOTAL KNEE ARTHROPLASTY SURGERY UNCOMPLICATED POD# 1 2. Anemia Hx 3. Environmental rhinitis 4. GERD 5. OA 6. Post-op acute dyspnea with acute hypoxia severe in nature with tachypnea and hypoxemia on ABG suspicious for a dislodged DVT pelvis DVT into a pulmonary embolism requiring higher level of transfer Transfer emergently ambulance to the ICU with cardiology and pulmonology consultation, CT angiogram, Lovenox 1mg/kg to cover for any type of clotting disorder and will monitor pt closely Extensive medical management required in this case Continue all home meds Monitor labs and BP Counseled patient on the need to use IS faithfully This document was scribed by Virginia Barahona under the supervision of Dr. Asha Helm. Subjective/Events-last exam Patient doing very well aligned remains on 2 L of oxygen Has exertional dyspnea Hep-locked IV fluid Bowels are really moving after laxatives Will need to go home on home oxygen so we'll do the evaluation today Asking for upper back pain and spasm medications so ordered baclofen 5 mg every 6 hours when necessary Check meds and labs Overall improving Using CPM machine Working with physical therapy Left knee postop is doing well Review of Systems Pulmonary: Dyspnea Musculoskeletal: leg pain Focused Exam Lactate Level 12/05/18 15:12: Lactic Acid Level 1.32 Objective Exam Vital Signs Vital Signs Date Time Temp Pulse Resp B/P (MAP) Pulse Ox O2 Delivery O2 Flow Rate FiO2 12/07/18 13:00 86 12/07/18 09:00 Nasal Cannula 3.00 12/07/18 08:00 36.9 20 177/98 (124) 94 Capillary Refill : Less Than 3 Seconds General Appearance: No Apparent Distress, WD/WN Respiratory: Chest Non Tender, Lungs Clear, Normal Breath Sounds, No Accessory Muscle Use, No Respiratory Distress Cardiovascular: Regular Rate, Rhythm, No Edema, No Gallop, No JVD, No Murmur, Normal Peripheral Pulses Neurologic/Psychiatric: Alert, Oriented x3, No Motor/Sensory Deficits, Normal Mood/Affect Results/Procedures Lab Laboratory Tests 12/07/18 06:36 Patient resulted labs reviewed. Assessment/Plan Assessment and Plan Assess & Plan/Chief Complaint Assessment: Acute pulmonary embolism 18 hours after knee surgery placed on Lovenox while in [facility] since high suspicion for PE transition to Eliquis Hypoxia requiring oxygen supplementation likely will need go home on oxygen Status post constipation resolution Neck and back spasms ordered baclofen Plan: Eliquis Home O2 eval Discharge planning Pain control Diagnosis/Problems Diagnosis/Problems (1) Pulmonary embolism Status: Acute Qualifiers: Pulmonary embolism type: other Chronicity: acute Acute cor pulmonale presence: with acute cor pulmonale Qualified Codes: I26.09 - Other pulmonary embolism with acute cor pulmonale (2) Hypoxia Status: Acute (3) Tachypnea Status: Acute (4) Status post total knee replacement, left Status: Acute (5) Elevated troponin Status: Acute (6) Dyspnea Status: Acute Qualifiers: Dyspnea type: shortness of breath Qualified Codes: R06.02 - Shortness of breath Clinical Quality Measures DVT/VTE Risk/Contraindication: Risk Factor Score Per Nursin RFS Level Per Nursing on Admit: 4+=Very High ASHA HELM DO Dec 07, 2018 12:51
[2018-12-07] MEDS: BACLOFEN 10 MG (LIORESAL) TAB PO PRN ×2 (13:45→23:04)
[2018-12-07 16:45] VITALS: BP 146/73
[2018-12-07 20:50] VITALS: BP 139/76
--- NOTE | 2018-12-07 21:30 | NUR ---
patient qualified for oxygen 85% on ra, after walking with o2 she was able to keep spo2 92% on 4 liters o2. Addendum: 12/08/18 at 1720 by ANN NATHAN RT Amended: Links added.
[2018-12-08] VITALS: BP 141/81
[2018-12-08] MEDS: BACLOFEN 10 MG (LIORESAL) TAB PO PRN ×3 (05:20→23:22)
[2018-12-08] MEDS: HYDROcodone/APAP 5 MG/325 MG (LORTAB) TAB PO PRN ×5 (05:20→23:23)
[2018-12-08 06:17] LABS: MAGNESIUM 1.9 MG/DL (1.6-2.4); PHOSPHORUS 3.5 MG/DL (2.3-4.7)
[2018-12-08] MEDS: RT-ALBUTEROL/IPRATROPIUM 3 ML (DUONEB) VIAL INH SCH ×2 (07:56→19:39)
[2018-12-08] MEDS: APIXABAN 5 MG (ELIQUIS) TABLET PO SCH ×2 (09:36→20:14)
[2018-12-08] MEDS: DOCUSATE SODIUM 100 MG (COLACE) CAP PO SCH ×2 (09:36→19:24)
[2018-12-08] MEDS: POLYETHYLENE GLYCOL 17 GM (MIRALAX) PACK PO SCH ×2 (09:37→19:24)
[2018-12-08] MEDS: SENNA W/DOCUSATE (SENOKOT S) TABLET PO SCH ×2 (09:37→19:24)
--- NOTE | 2018-12-08 11:52 | Physical Therapy Daily Note ---
PT Daily Note-Current Subjective Agrees. Reports her knee is feeling better. Transfers SCALE: Activities may be completed with or without assistive devices. 8-Ajpotjosse-zjwxcxo completes the activity by him/herself with no assistance from a helper. 5-Set-up or Clean-up Assistance-helper sets up or cleans up; patient completes activity. [place] assists only prior to or following the activity. 4-Supervision or Touching Assistance-helper provides verbal cues and/or touching/steadying and/or contact guard assistance as patient completes activity. Assistance may be provided throughout the activity or intermittently. 3-Partial/Moderate Assistance-helper does LESS THAN HALF the effort. [place] lifts, holds or supports trunk or limbs, but provides less than half the effort. 2-Substantial/Maximal Assistance-helper does MORE THAN HALF the effort. [place] lifts or holds trunk or limbs and provides more than half the effort. 0-Rbmsmbhhc-fykyuk does ALL the effort. Patient does none of the effort to complete the activity. Or, the assistance of 2 or more helpers is required for the patient to complete the activity. If activity was not attempted, code reason: 7-Patient Refused. 9-Not Applicable-not attempted and the patient did not perform the activity before the current illness, exacerbation or injury. 10-Not Attempted due to Environmental Limitations-(lack of equipment, weather restraints, etc.). 88-Not Attempted due to Medical Conditions or Safety Concerns. Weight Bearing Right Lower Extremity: Right Weight Bearing/Tolerated Left Lower Extremity: Left Weight Bearing/Tolerated Treatments Indep with all bed mobility and transfers. Pt amb x 200 ft with FWW with SBA with assist withoxygen. Seated left LE ther ex x 15 AP, LAQ, hip flex, and heel slides to promote knee flexion. In bed post treatment with CPM in place at 0-80 degrees and oxygen in situ. Assessment Current Status: Good Progress Progressing well PT Long-Term Goals Master Electrician Goals PT Master Electrician Goals Time Frame: Dec 13, 2018 Sit to Lying (QC): 6 Lying-Sitting on Side/Bed(QC): 6 Sit to Stand (QC): 6 Roll Left to Right (QC): 6 Chair/Yfy-oj-Dldha Xfer(QC): 6 Does the Patient Walk: Yes Distance: 300' Walk 10 feet (QC): 6 Walk 10ft-Uneven Surface(QC): 6 Walk 50ft with 2 Turns (QC): 6 Walk 150 ft (QC): 6 Gait Assistive Device: FWW PT Plan Problem List Problem List: Activity Tolerance, Functional Strength, Safety Treatment/Plan Treatment Plan: Continue Plan of Care Treatment Plan: Education, Functional Activity Lesly, Functional Strength, Gait, Safety, Therapeutic Exercise, Transfers Treatment Duration: Dec 13, 2018 Frequency: 11 times per week Estimated Hrs Per Day: .5 hour per day Patient and/or Family Agrees t: Yes Safety Risks/Education Patient Education: Safety Issues Teaching Recipient: Patient Teaching Methods: Discussion Response to Teaching: Return Demonstration Time/GCodes Time In: 1125 Time Out: 1150 Total Billed Treatment Time: 25 Total Billed Treatment visit GT 15 EX 10 SYLVIA GOYAL PT Dec 08, 2018 11:52
--- NOTE | 2018-12-08 12:51 | Progress Note - Hospitalist ---
Subjective HPI/CC On Admission Date Seen by Provider: Dec 08, 2018 Time Seen by Provider: 12:15 CC: Dyspnea Note from HUMBLE Sim yesterday: Seen around 11:45 I was called by RN on my way to [place] for tachycardia of 130, abrupt onset of SOB and hypoxia, required 4 liters of O2 and had to be helped back in bed. This happened just abruptly She has no history of PE or DVT and does not take any prescription medication Has never had SOB like this I arrived at the bedside and ABG reveals 7. with confirmed hypoxia I suspect there to have been a dislodged DVT into a pulmonary emboli causing these symptoms or a pulmonary edema congestive heart failure versus acute coronary syndrome EKG reveals sinus tachycardia of 130 BP remained stable at 120/75 Heart rate of 130-90 Updated pt and and they choose to go to [place] [facility] in [place] where I can provide her care in the ICU I did confer with Dr. Beasley and Dr. Billings and they will expect her Put in all ICU orders, CT angiogram, B/L Lower extremity venous doppler, D- dimer, Troponin, BNP, Septic work-up, CBC, CMP, EKG and chest x-ray I already dosed her with Lovenox of 1mg/kg to cover for any type of pulmonary embolism I did confer with Dr. Saravia who did agree with the plan Afebrile, heart rate 90-130, BP 120/75, O2 sat of 83 % off O2 Tachycardic at 94 beats per minute, No murmur, CTAB, mild tachypnea but CTAB, Trace edema B/L lower extremities Home Meds Vitamin E 400IU Oral Capsule, Liquid Filled 400 INTERNATIONAL UNITS ORAL Daily Claritin 10MG Oral Tablet 10 MILLIGRAMS ORAL Every 24 hours as needed Meloxicam 7.5MG Oral Tablet 7.5 MILLIGRAMS ORAL Twice Daily Mucinex DM 60MG-1200MG Oral Tablet, Extended Release 1 EACH ORAL Every 24 hours as needed NexIUM 24HR 20MG Oral Capsule, Delayed Release 20 MILLIGRAMS ORAL Every 24 hours as needed Turmeric 1000MG-5MG Oral Capsule 1 EACH ORAL Three times a day Vitamin B12 5000 MCG Sublingual Tablet 5000 MCG SUBLINGUAL Daily Vitamin D3 5000 IU Oral Capsule 5000 IU ORAL Daily Zinc 50 MG Oral Tablet 50 MG ORAL Daily Blood Pressure: 128/84 LYING R ARM 12/05/2018 12:04 AFVSS, Pleasant, O x 3, anxious, tachypneic RRR, CTAB mild tachypneic No edema Labs: pH: 7.35 12/05/2018 11:21 O2 SAT: 90 % L 12/05/2018 11:21 BE: -5 mmol/L L 12/05/2018 11:21 TROPONIN: 0.05 Ng/ml H 12/05/2018 11:21 CREATININE: 0.6 mg/dl 12/05/2018 07:53 SODIUM: 137 mmol/L L 12/05/2018 07:53 HEMOGLOBIN: 10.9 gm/dl L 12/05/2018 07:53 A/P: 1. LEFT TOTAL KNEE ARTHROPLASTY SURGERY UNCOMPLICATED POD# 1 2. Anemia Hx 3. Environmental rhinitis 4. GERD 5. OA 6. Post-op acute dyspnea with acute hypoxia severe in nature with tachypnea and hypoxemia on ABG suspicious for a dislodged DVT pelvis DVT into a pulmonary embo lism requiring higher level of transfer Transfer emergently ambulance to the ICU with cardiology and pulmonology consultation, CT angiogram, Lovenox 1mg/kg to cover for any type of clotting disorder and will monitor pt closely Extensive medical management required in this case Continue all home meds Monitor labs and BP Counseled patient on the need to use IS faithfully This document was scribed by Virginia Barahona under the supervision of Dr. Asha Helm. Subjective/Events-last exam CPM machine is used most of the day and night Needs CPM at home at DC 2 L/min O2 at DC so will set that up tomorrow BM+ [facility] is pharmacy Review of Systems Pulmonary: Dyspnea Musculoskeletal: leg pain Focused Exam Lactate Level Objective Exam Vital Signs Vital Signs Date Time Temp Pulse Resp B/P (MAP) Pulse Ox O2 Delivery O2 Flow Rate FiO2 12/08/18 19:40 96 Nasal Cannula 2.00 12/08/18 18:10 37.0 80 12/08/18 15:30 20 150/92 (111) Capillary Refill : Less Than 3 Seconds General Appearance: No Apparent Distress, WD/WN Respiratory: Chest Non Tender, Lungs Clear, Normal Breath Sounds, No Accessory Muscle Use, No Respiratory Distress Cardiovascular: Regular Rate, Rhythm, No Edema, No Gallop, No JVD, No Murmur, Normal Peripheral Pulses Neurologic/Psychiatric: Alert, Oriented x3, No Motor/Sensory Deficits, Normal Mood/Affect Results/Procedures Lab Patient resulted labs reviewed. Assessment/Plan Assessment and Plan Assess & Plan/Chief Complaint Assessment: Acute pulmonary embolism 18 hours after knee surgery placed on Lovenox while in [facility] since high suspicion for PE transition to Eliquis Hypoxia requiring oxygen supplementation likely will need go home on oxygen Status post constipation resolution Neck and back spasms ordered baclofen Plan: Eliquis Home O2 2 L/min at DC Discharge planning for tomorrow Pain control Diagnosis/Problems Diagnosis/Problems (1) Pulmonary embolism Status: Acute Qualifiers: Pulmonary embolism type: other Chronicity: acute Acute cor pulmonale presence: with acute cor pulmonale Qualified Codes: I26.09 - Other pulmonary embolism with acute cor pulmonale (2) Hypoxia Status: Acute (3) Tachypnea Status: Acute (4) Status post total knee replacement, left Status: Acute (5) Elevated troponin Status: Acute (6) Dyspnea Status: Acute Qualifiers: Dyspnea type: shortness of breath Qualified Codes: R06.02 - Shortness of breath Clinical Quality Measures DVT/VTE Risk/Contraindication: Risk Factor Score Per Nursin RFS Level Per Nursing on Admit: 4+=Very High ASHA HELM DO Dec 08, 2018 12:51
--- NOTE | 2018-12-08 14:52 | Progress Note - Cardiology ---
Cardiology SOAP Progress Note Subjective: No cp or palp or syncope or shortness of breath at rest Objective: I&O/Vital Signs 12/08/18 12/08/18 12/08/18 12/08/18 07:10 07:56 09:59 12:57 Pulse 72 97 Pulse Ox 92 O2 Delivery Nasal Cannula Nasal Cannula O2 Flow Rate 2.00 3.00 12/08/18 00:00 Intake Total 1750 ml Output Total 2050 ml Balance -300 ml Constitutional: AAO x 3, well-nourished Respiratory: No accessory muscle use, No respiratory distress; chest expansion is symmetric, chest is bilaterally symmetric, lungs clear to auscultation Cardiovascular: No JVD; S1 and S2 Gastrointestional: No tender; soft, round, audible bowel sounds Extremities: no lower extremity edema bilateral Neurologic/Psychiatric: grossly intact Skin: other (Dressing to left leg D&I - not removed) Results/Procedures: Labs Laboratory Tests 12/08/18 05:44: Phosphorus Level 3.5, Magnesium Level 1.9 Microbiology 12/05/18 Blood Culture - Preliminary, Resulted No growth 12/05/18 MRSA Screen - Final, Complete MRSA not isolated Laboratory Tests 12/07/18 06:36 A/P: Assessment: Elevated troponin - secondary to PE PE - oottc-hb-uwplynpd emboli in the left lower lobe pulmonary arterial branches as well as an embolus in one of the smaller branches of the left upper lobe. There is a nonocclusive thrombus in the right main pulmonary artery laterally as well as some smaller emboli in the right lower lobe branches. Per CTA of the chest on 12-05-18 OAC with Eliquis (started on 12-05-18) Echocardiogram of Dec 05, 2018 shows LVEF 65-70%. No regional wall motion abnormalities. Grade 2 diastolic dysfunction. Mild to mod RV vol overload and pressure overload. RA dilated Mild to mod TR. RVSP 34 mmHg. IVC dilated. No evidence of DVT on LE venous doppler of 12-05-18 H/O recent L TKR on 12-04-[address] Saravia at [facility] H/O R TKR in 2014 H/O R rotator cuff repair in 2012 Tobaccoism - cessation advised Plan: * I discussed her CV issues with her, her , and her son today * Continue OAC with Eliquis * Monitor labs LUCY PIPER MD FACP [facility] CCDS Dec 08, 2018 14:52
[2018-12-08 15:30] VITALS: BP 150/92
[2018-12-08 18:10] VITALS: BP 150/92
[2018-12-09 00:09] VITALS: BP 155/84
[2018-12-09] MEDS: HYDROcodone/APAP 5 MG/325 MG (LORTAB) TAB PO PRN ×2 (04:15→08:24)
[2018-12-09] MEDS: BACLOFEN 10 MG (LIORESAL) TAB PO PRN (05:39)
[2018-12-09 05:41] LABS: BASOPHILS % (AUTO) 0 % (0-10); EOSINOPHILS # (AUTO) 0.1 10^3/uL (0.0-0.3); EOSINOPHILS % (AUTO) 2 % (0-10); HEMATOCRIT 31 % (35-52); HEMOGLOBIN 9.9 G/DL (11.5-16.0); LYMPHOCYTES # (AUTO) 1.9 X 10^3 (1.0-4.0); LYMPHOCYTES % (AUTO) 32 % (12-44); MEAN CORPUSCULAR HEMOGLOBIN 31 PG (25-34); MEAN CORPUSCULAR HGB CONC 32 G/DL (32-36); MEAN CORPUSCULAR VOLUME 97 FL (80-99); MEAN PLATELET VOLUME 9.2 FL (7.4-10.4); MONOCYTES # (AUTO) 0.5 X 10^3 (0.0-1.0); MONOCYTES % (AUTO) 8 % (0-12); NEUTROPHILS # (AUTO) 3.4 X 10^3 (1.8-7.8); NEUTROPHILS % (AUTO) 57 % (42-75); PLATELET COUNT 210 10^3/uL (130-400); RED CELL DISTRIBUTION WIDTH 15.1 % (10.0-14.5); WHITE BLOOD COUNT 5.9 10^3/uL (4.3-11.0)
[2018-12-09 06:03] LABS: ALANINE AMINOTRANSFERASE 31 U/L (0-55); ALBUMIN 3.7 GM/DL (3.2-4.5); ALKALINE PHOSPHATASE 71 U/L (40-136); BILIRUBIN,TOTAL 0.6 MG/DL (0.1-1.0); BUN/CREATININE RATIO 17; CALCIUM 8.9 MG/DL (8.5-10.1); CARBON DIOXIDE 27 MMOL/L (21-32); CHLORIDE 105 MMOL/L (98-107); CREATININE SERUM 0.64 MG/DL (0.60-1.30); GFR ESTIMATED > 60; GLUCOSE 98 MG/DL (70-105); POTASSIUM 3.7 MMOL/L (3.6-5.0); SODIUM 142 MMOL/L (135-145); TOTAL PROTEIN 6.6 GM/DL (6.4-8.2)
[2018-12-09] MEDS ORDERED: TRAM50TA2 PO (08:18)
[2018-12-09] MEDS ORDERED: APIX5TAB PO (08:18)
[2018-12-09] MEDS ORDERED: DOCU100C37 PO (08:18)
[2018-12-09] MEDS ORDERED: ACHD5005 PO (08:18)
[2018-12-09] MEDS ORDERED: BACL10TA PO (08:18)
--- NOTE | 2018-12-09 08:22 | Discharge Summary ---
Diagnosis/Chief Complaint Date of Admission Dec 05, 2018 at 13:00 Date of Discharge Discharge Date: Dec 09, 2018 Discharge Diagnosis Assessment: Acute pulmonary embolism 18 hours after knee surgery placed on Lovenox while in [facility] since high suspicion for PE transition to Eliquis Hypoxia requiring oxygen supplementation likely will need go home on oxygen Status post constipation resolution Neck and back spasms ordered baclofen Plan: Eliquis Home O2 eval Discharge planning Pain control Discharge Summary Discharge Physical Examination Allergies: Coded Allergies: No Known Drug Allergies (Unverified , 12/05/18) Vitals & I&Os Vital Signs Date Time Temp Pulse Resp B/P (MAP) Pulse Ox O2 Delivery O2 Flow Rate FiO2 12/09/18 11:30 36.6 78 18 155/84 96 Nasal Cannula 2.00 Hospital Course Was the Problem List Reviewed?: Yes Hospital Course: Pt had a lengthy hospital course. She was admitted as a direct transfer from [facility] for suspicion of PE, Lovenox was given prior to transfer. Pt was maintained on oxygen for hypoxia confirmed on ABG and elevated Troponin required cardiology evaluation and hypoxia and pulmonary emboli with moderate clot burden required pulmonology evaluation and echocardiogram evaluation. Pt did stabilize and was transitioned to oral anticoagulation of Eliquis and tolerated this well. Oxygen supplementation was required at DC and she will remain on oral anticoagulation for 6 months, and CPM machine and home O2 at 2 liters continuous and pain medication in addition to Baclofen, stool softeners were sent on DC medication list. She will have close follow up with Dr. Guy in one week and Dr. Saravia as scheduled. Labs (last 24 hrs) Laboratory Tests 12/05/18 13:48: Blood Gas Puncture Site RIGHT RADIAL, Blood Gas Patient Temperature 36.4, Arterial Blood pH 7.40, Arterial Blood Partial Pressure CO2 37, Arterial Blood Partial Pressure O2 68L, Arterial Blood HCO3 23, Arterial Blood Total CO2 24.1, Arterial Blood Oxygen Saturation 93L, Arterial Blood Base Excess -1.3, Keyur T est POSITIVE, Blood Gas Ventilator Setting NO, Blood Gas Inspired Oxygen 4 L 12/05/18 14:45: Urine Color YELLOW, Urine Clarity CLEAR, Urine pH 6.5, Urine Specific [place] 1.010L, Urine Protein NEGATIVE, Urine Glucose (UA) NEGATIVE, Urine Ketones NEGATIVE, Urine Nitrite NEGATIVE, Urine Bilirubin NEGATIVE, Urine Urobilinogen NORMAL, Urine Leukocyte Esterase NEGATIVE, Urine RBC (Auto) NEGATIVE, Urine RBC NONE, Urine WBC NONE, Urine Crystals NONE, Urine Bacteria NEGATIVE, Urine Casts NONE, Urine Mucus NEGATIVE, Urine Culture Indicated NO 12/05/18 15:12: White Blood Count 9.6, Red Blood Count 3.30L, Hemoglobin 10.4L, Hematocrit 32L, Mean Corpuscular Volume 96, Mean Corpuscular Hemoglobin 32, Mean Corpuscular Hemoglobin Concent 33, Red Cell Distribution Width 14.8H, Platelet Count 195, Mean Platelet Volume 10.4, Neutrophils (%) (Auto) 82H, Lymphocytes (%) (Auto) 12, Monocytes (%) (Auto) 5, Eosinophils (%) (Auto) 0, Basophils (%) (Auto) 0, Neutrophils # (Auto) 7.9H, Lymphocytes # (Auto) 1.2, Monocytes # (Auto) 0.5, Eosinophils # (Auto) 0.0, Basophils # (Auto) 0.0, D-Dimer 3.37H, Sodium Level 138, Potassium Level 4.4, Chloride Level 107, Carbon Dioxide Level 24, Anion Gap 7, Blood Urea Nitrogen 21H, Creatinine 0.63, Estimat Glomerular Filtration Rate > 60, BUN/Creatinine Ratio 33, Glucose Level 116H, Lactic Acid Level 1.32, Calcium Level 8.6, Corrected Calcium 8.9, Total Bilirubin 0.4, Aspartate Amino Transf (AST/SGOT) 31, Alanine Aminotransferase (ALT/SGPT) 19, Alkaline Phosphatase 71, Troponin I 0.532*H, B-Type Natriuretic Peptide 83.5, Total Protein 6.2L, Albumin 3.6 12/06/18 07:05: White Blood Count 7.3, Red Blood Count 3.14L, Hemoglobin 9.8L, Hematocrit 31L, Mean Corpuscular Volume 98, Mean Corpuscular Hemoglobin 31, Mean Corpuscular Hemoglobin Concent 32, Red Cell Distribution Width 15.1H, Platelet Count 160, Mean Platelet Volume 10.3, Neutrophils (%) (Auto) 54, Lymphocytes (%) (Auto) 39, Monocytes (%) (Auto) 7, Eosinophils (%) (Auto) 1, Basophils (%) (Auto) 0, Neutrophils # (Auto) 3.9, Lymphocytes # (Auto) 2.9, Monocytes # (Auto) 0.5, Eosinophils # (Auto) 0.0, Basophils # (Auto) 0.0, Sodium Level 139, Potassium Level 4.0, Chloride Level 108H, Carbon Dioxide Level 24, Anion Gap 7, Blood Urea Nitrogen 18, Creatinine 0.61, Estimat Glomerular Filtration Rate > 60, BUN/Creatinine Ratio 30, Glucose Level 88, Calcium Level 8.0L, Corrected Calcium 8.5, Total Bilirubin 0.3, Aspartate Amino Transf (AST/SGOT) 27, Alanine Aminotransferase (ALT/SGPT) 18, Alkaline Phosphatase 69, Total Protein 5.7L, Albumin 3.4, Phosphorus Level 2.8, Magnesium Level 1.9 12/07/18 06:36: White Blood Count 6.7, Red Blood Count 3.17L, Hemoglobin 9.6L, Hematocrit 31L, Mean Corpuscular Volume 97, Mean Corpuscular Hemoglobin 30, Mean Corpuscular Hemoglobin Concent 31L, Red Cell Distribution Width 15.2H, Platelet Count 190, Mean Platelet Volume 9.7, Neutrophils (%) (Auto) 64, Lymphocytes (%) (Auto) 27, Monocytes (%) (Auto) 8, Eosinophils (%) (Auto) 1, Basophils (%) (Auto) 0, Ne utrophils # (Auto) 4.3, Lymphocytes # (Auto) 1.8, Monocytes # (Auto) 0.5, Eosinophils # (Auto) 0.1, Basophils # (Auto) 0.0, Sodium Level 141, Potassium Level 3.7, Chloride Level 107, Carbon Dioxide Level 24, Anion Gap 10, Blood Urea Nitrogen 9, Creatinine 0.59L, Estimat Glomerular Filtration Rate > 60, BUN/Creatinine Ratio 15, Glucose Level 95, Calcium Level 8.6, Corrected Calcium 8.9, Phosphorus Level 2.7, Magnesium Level 1.8, Total Bilirubin 0.5, Aspartate Amino Transf (AST/SGOT) 30, Alanine Aminotransferase (ALT/SGPT) 17, Alkaline Phosphatase 63, Total Protein 6.2L, Albumin 3.6 12/08/18 05:44: Phosphorus Level 3.5, Magnesium Level 1.9 12/09/18 05:35: White Blood Count 5.9, Red Blood Count 3.21L, Hemoglobin 9.9L, Hematocrit 31L, Mean Corpuscular Volume 97, Mean Corpuscular Hemoglobin 31, Mean Corpuscular Hemoglobin Concent 32, Red Cell Distribution Width 15.1H, Platelet Count 210, Mean Platelet Volume 9.2, Neutrophils (%) (Auto) 57, Lymphocytes (%) (Auto) 32, Monocytes (%) (Auto) 8, Eosinophils (%) (Auto) 2, Basophils (%) (Auto) 0, Neutrophils # (Auto) 3.4, Lymphocytes # (Auto) 1.9, Monocytes # (Auto) 0.5, Eosinophils # (Auto) 0.1, Basophils # (Auto) 0.0, Sodium Level 142, Potassium Level 3.7, Chloride Level 105, Carbon Dioxide Level 27, Anion Gap 10, Blood Urea Nitrogen 11, Creatinine 0.64, Estimat Glomerular Filtration Rate > 60, BUN/Creatinine Ratio 17, Glucose Level 98, Calcium Level 8.9, Corrected Calcium 9.1, Total Bilirubin 0.6, Aspartate Amino Transf (AST/SGOT) 30, Alanine Aminotransferase (ALT/SGPT) 31, Alkaline Phosphatase 71, Total Protein 6.6, Albumin 3.7 Microbiology 12/05/18 Blood Culture - Final, Complete No growth 12/05/18 MRSA Screen - Final, Complete MRSA not isolated Pending Labs Microbiology Date/Time Source Procedure Growth Status 12/05/18 15:26 Peripheral Lt Hand Blood Culture - Final No growth Complete 12/05/18 15:12 Peripheral Iv/Heplock Blood Culture - Final No growth Complete 12/05/18 13:22 Nasal MRSA Screen - Final MRSA not isolated Complete Laboratory Tests 12/05/18 13:48: Blood Gas Puncture Site RIGHT RADIAL, Blood Gas Patient Temperature 36.4, Arterial Blood pH 7.40, Arterial Blood Partial Pressure CO2 37, Arterial Blood Partial Pressure O2 68, Arterial Blood HCO3 23, Arterial Blood Total CO2 24.1, Arterial Blood Oxygen Saturation 93, Arterial Blood Base Excess -1.3, Keyur Test POSITIVE, Blood Gas Ventilator Setting NO, Blood Gas Inspired Oxygen 4 L 12/05/18 14:45: Urine Color YELLOW, Urine Clarity CLEAR, Urine pH 6.5, Urine Specific [place] 1.010, Urine Protein NEGATIVE, Urine Glucose (UA) NEGATIVE, Urine Ketones NEGATIVE, Urine Nitrite NEGATIVE, Urine Bilirubin NEGATIVE, Urine Urobilinogen NORMAL, Urine Leukocyte Esterase NEGATIVE, Urine RBC (Auto) NEGATIVE, Urine RBC NONE, Urine WBC NONE, Urine Crystals NONE, Urine Bacteria NEGATIVE, Urine Casts NONE, Urine Mucus NEGATIVE, Urine Culture Indicated NO 12/05/18 15:12: White Blood Count 9.6, Red Blood Count 3.30, Hemoglobin 10.4, Hematocrit 32, Mean Corpuscular Volume 96, Mean Corpuscular Hemoglobin 32, Mean Corpuscular Hemoglobin Concent 33, Red Cell Distribution Width 14.8, Platelet Count 195, Mean Platelet Volume 10.4, Neutrophils (%) (Auto) 82, Lymphocytes (%) (Auto) 12, Monocytes (%) (Auto) 5, Eosinophils (%) (Auto) 0, Basophils (%) (Auto) 0, Neutrophils # (Auto) 7.9, Lymphocytes # (Auto) 1.2, Monocytes # (Auto) 0.5, Eosinophils # (Auto) 0.0, Basophils # (Auto) 0.0, D-Dimer 3.37, Sodium Level 138, Potassium Level 4.4, Chloride Level 107, Carbon Dioxide Level 24, Anion Gap 7, Blood Urea Nitrogen 21, Creatinine 0.63, Estimat Glomerular Filtration Rate > 60, BUN/Creatinine Ratio 33, Glucose Level 116, Lactic Acid Level 1.32, Calcium Level 8.6, Corrected Calcium 8.9, Total Bilirubin 0.4, Aspartate Amino Transf (AST/SGOT) 31, Alanine Aminotransferase (ALT/SGPT) 19, Alkaline Phosphatase 71, Troponin I 0.532, B-Type Natriuretic Peptide 83.5, Total Protein 6.2, Albumin 3.6 12/06/18 07:05: White Blood Count 7.3, Red Blood Count 3.14, Hemoglobin 9.8, Hematocrit 31, Mean Corpuscular Volume 98, Mean Corpuscular Hemoglobin 31, Mean Corpuscular Hemoglobin Concent 32, Red Cell Distribution Width 15.1, Platelet Count 160, Mean Platelet Volume 10.3, Neutrophils (%) (Auto) 54, Lymphocytes (%) (Auto) 39, Monocytes (%) (Auto) 7, Eosinophils (%) (Auto) 1, Basophils (%) (Auto) 0, Neutrophils # (Auto) 3.9, Lymphocytes # (Auto) 2.9, Monocytes # (Auto) 0.5, Eosinophils # (Auto) 0.0, Basophils # (Auto) 0.0, Sodium Level 139, Potassium Level 4.0, Chloride Level 108, Carbon Dioxide Level 24, Anion Gap 7, Blood Urea Nitrogen 18, Creatinine 0.61, Estimat Glomerular Filtration Rate > 60, BUN /Creatinine Ratio 30, Glucose Level 88, Calcium Level 8.0, Corrected Calcium 8.5, Total Bilirubin 0.3, Aspartate Amino Transf (AST/SGOT) 27, Alanine Aminotransferase (ALT/SGPT) 18, Alkaline Phosphatase 69, Total Protein 5.7, Albumin 3.4, Phosphorus Level 2.8, Magnesium Level 1.9 12/07/18 06:36: White Blood Count 6.7, Red Blood Count 3.17, Hemoglobin 9.6, Hematocrit 31, Mean Corpuscular Volume 97, Mean Corpuscular Hemoglobin 30, Mean Corpuscular Hemoglobin Concent 31, Red Cell Distribution Width 15.2, Platelet Count 190, Mean Platelet Volume 9.7, Neutrophils (%) (Auto) 64, Lymphocytes (%) (Auto) 27, Monocytes (%) (Auto) 8, Eosinophils (%) (Auto) 1, Basophils (%) (Auto) 0, Neutrophils # (Auto) 4.3, Lymphocytes # (Auto) 1.8, Monocytes # (Auto) 0.5, Eosinophils # (Auto) 0.1, Basophils # (Auto) 0.0, Sodium Level 141, Potassium Level 3.7, Chloride Level 107, Carbon Dioxide Level 24, Anion Gap 10, Blood Urea Nitrogen 9, Creatinine 0.59, Estimat Glomerular Filtration Rate > 60, BUN/Creatinine Ratio 15, Glucose Level 95, Calcium Level 8.6, Corrected Calcium 8.9, Phosphorus Level 2.7, Magnesium Level 1.8, Total Bilirubin 0.5, Aspartate Amino Transf (AST/SGOT) 30, Alanine Aminotransferase (ALT/SGPT) 17, Alkaline Phosphatase 63, Total Protein 6.2, Albumin 3.6 12/08/18 05:44: Phosphorus Level 3.5, Magnesium Level 1.9 12/09/18 05:35: White Blood Count 5.9, Red Blood Count 3.21, Hemoglobin 9.9, Hematocrit 31, Mean Corpuscular Volume 97, Mean Corpuscular Hemoglobin 31, Mean Corpuscular Hemoglobin Concent 32, Red Cell Distribution Width 15.1, Platelet Count 210, Mean Platelet Volume 9.2, Neutrophils (%) (Auto) 57, Lymphocytes (%) (Auto) 32, Monocytes (%) (Auto) 8, Eosinophils (%) (Auto) 2, Basophils (%) (Auto) 0, Neutrophils # (Auto) 3.4, Lymphocytes # (Auto) 1.9, Monocytes # (Auto) 0.5, Eosinophils # (Auto) 0.1, Basophils # (Auto) 0.0, Sodium Level 142, Potassium Level 3.7, Chloride Level 105, Carbon Dioxide Level 27, Anion Gap 10, Blood Urea Nitrogen 11, Creatinine 0.64, Estimat Glomerular Filtration Rate > 60, BUN/Creatinine Ratio 17, Glucose Level 98, Calcium Level 8.9, Corrected Calcium 9.1, Total Bilirubin 0.6, Aspartate Amino Transf (AST/SGOT) 30, Alanine Aminotransferase (ALT/SGPT) 31, Alkaline Phosphatase 71, Total Protein 6.6, Albumin 3.7 Discharge Home Medications: Active Scripts Active Docusate Sodium 100 Mg Capsule 100 Mg PO BID Tramadol HCl 50 Mg Tablet 50 Mg PO Q6H PRN Hydrocodone/Acetaminophen 5/325mg Tablet (Acetaminophen/Hydrocodone Bitart) 1 Tab Tab 1 Tab PO Q4H PRN Eliquis (Apixaban) 5 Mg Tablet 10 Mg PO BID Baclofen 10 Mg Tablet 5 Mg PO Q6HR PRN Reported Magnesium (Magnesium Oxide) 400 Mg Tablet 400 Mg PO DAILY Potassium (Potassium Gluconate) 99 Mg Tablet 99 Mg PO DAILY Probiotic (Lactobacillus Combo No.10) 1 Each Capsule 1 Cap PO DAILY Fish Oil 1,000 mg Capsule ([place] 3 Polyunsat Fatty Acids) 1,000 Mg Cap 1,000 Mg PO DAILY Vitamin E (Vitamin E Acetate) 400 Unit Capsule 400 Unit PO DAILY Zinc (Zinc Gluconate) 50 Mg Tablet 50 Mg PO DAILY Turmeric 500 mg Capsule (Turmeric/Turmeric Root Extract) 1 Each Capsule 1,000 Mg PO TID Mucinex Dm ER 600-30 mg Tablet (Guaifenesin/Dextromethorphan) 1 Each Tab.er.12h 1 Tab PO BID PRN Claritin (Loratadine) 10 Mg Tablet 10 Mg PO DAILY PRN Nexium 24Hr (Esomeprazole Magnesium) 20 Mg Tablet.dr 20 Mg PO DAILY PRN Instructions to patient/family Please see electronic discharge instructions given to patient. Diagnosis/Problems Diagnosis/Problems (1) Pulmonary embolism Status: Acute Qualifiers: Qualified Codes: I26.09 - Other pulmonary embolism with acute cor pulmonale (2) Hypoxia Status: Acute (3) Tachypnea Status: Acute (4) Status post total knee replacement, left Status: Acute (5) Elevated troponin Status: Acute (6) Dyspnea Status: Acute Qualifiers: Qualified Codes: R06.02 - Shortness of breath Clinical Quality Measures DVT/VTE Risk/Contraindication: Risk Factor Score Per Nursin RFS Level Per Nursing on Admit: 4+=Very High VIJI HELM DO Dec 09, 2018 08:22
[2018-12-09] MEDS: POLYETHYLENE GLYCOL 17 GM (MIRALAX) PACK PO SCH (08:23)
[2018-12-09] MEDS: SENNA W/DOCUSATE (SENOKOT S) TABLET PO SCH (08:24)
[2018-12-09] MEDS: APIXABAN 5 MG (ELIQUIS) TABLET PO SCH (08:24)
[2018-12-09] MEDS: DOCUSATE SODIUM 100 MG (COLACE) CAP PO SCH (08:24)
--- NOTE | 2018-12-09 09:14 | NUR ---
PRIOR TO A.M. MEDICATIONS PULSE WAS 80 AND B/P WAS 157/80
--- NOTE | 2018-12-09 10:06 | Physical Therapy Daily Note ---
PT Daily Note-Current Subjective Patient reports she will dismiss to home on this date with O2 short term. Agrees to PT Pain Numeric Pain Scale: 3 Location: Left Location Body Site: Knee Pain Description: Acute Mental Status Patient Orientation: Normal For Age Attachments: Oxygen (2L) Transfers SCALE: Activities may be completed with or without assistive devices. 4-Lcwriqdqpd-tdddyft completes the activity by him/herself with no assistance from a helper. 5-Set-up or Clean-up Assistance-helper sets up or cleans up; patient completes activity. [place] assists only prior to or following the activity. 4-Supervision or Touching Assistance-helper provides verbal cues and/or touching/steadying and/or contact guard assistance as patient completes activity. Assistance may be provided throughout the activity or intermittently. 3-Partial/Moderate Assistance-helper does LESS THAN HALF the effort. [place] lifts, holds or supports trunk or limbs, but provides less than half the effort. 2-Substantial/Maximal Assistance-helper does MORE THAN HALF the effort. [place] lifts or holds trunk or limbs and provides more than half the effort. 1-Oktmpwpdd-oaexlg does ALL the effort. Patient does none of the effort to complete the activity. Or, the assistance of 2 or more helpers is required for the patient to complete the activity. If activity was not attempted, code reason: 7-Patient Refused. 9-Not Applicable-not attempted and the patient did not perform the activity before the current illness, exacerbation or injury. 10-Not Attempted due to Environmental Limitations-(lack of equipment, weather restraints, etc.). 88-Not Attempted due to Medical Conditions or Safety Concerns. Roll Left to Right (QC): 6 Sit to Lying (QC): 6 Sit to Stand (QC): 6 Chair/Xkd-gn-Jikev Xfer(QC): 6 Bed to/from Chair: 6 Weight Bearing Right Lower Extremity: Right Weight Bearing/Tolerated Left Lower Extremity: Left Weight Bearing/Tolerated Gait Training Distance: 500' Walk 10 feet (QC): 6 Walk 50 ft with 2 Turns(QC): 6 Walk 150 ft (QC): 6 Gait Assistive Device: FWW reciprocal pattern Exercises Seated Therapy Exercises: Ankle pumps, Long arc quads Seated Reps: 15 Assessment Patient to dismiss to home with outpatient therapy scheduled. Patient has met all functional goals. PT Skilled Nursing Goals Skilled Nursing Goals PT City Comptroller Goals Time Frame: Dec 13, 2018 Sit to Lying (QC): 6 Lying-Sitting on Side/Bed(QC): 6 Sit to Stand (QC): 6 Roll Left to Right (QC): 6 Chair/Xkp-wo-Bgrsa Xfer(QC): 6 Does the Patient Walk: Yes Distance: 300' Walk 10 feet (QC): 6 Walk 10ft-Uneven Surface(QC): 6 Walk 50ft with 2 Turns (QC): 6 Walk 150 ft (QC): 6 Gait Assistive Device: FWW PT Plan Treatment/Plan Treatment Plan: Discontinue PT, goals met Treatment Plan: Education, Functional Activity Lesly, Functional Strength, Gait, Safety, Therapeutic Exercise, Transfers Treatment Duration: Dec 13, 2018 Frequency: 11 times per week Estimated Hrs Per Day: .5 hour per day Patient and/or Family Agrees t: Yes Time/GCodes Time In: 834 Time Out: 847 Total Billed Treatment Time: 13 Total Billed Treatment 1 visit FA 13 min ANN LEIVA PT Dec 09, 2018 10:06
--- NOTE | 2018-12-09 10:09 | NUR ---
CM DISCHARGE PLANNING: Patient will dismiss to home today with out patient therapy that has been arranged by [facility] in [place]. F/U with [facility] staff to let them know that she is dismissing home today et is requesting a CPM for home use. [employer] has contacted me et will deliver that equipment to their room this a.m. Patient will also need new home medical equipment of oxygen. Continuous oxygen at 4LPM via [place]. Choices presented et patient et have selected to use [facility] for their oxygen needs. This referral has been faxed et f/u phone call has been made to ensure that they will be able to meet this patients needs. They indicated that she will be in their covered area et will deliver her oxygen to her room. Patient also has a new prescription for Eliquis. This is a high cost medication et Pharmacist Orquidea did explore with the patient the free 30 day trial offer et then also a coupon for 10 dollars off her next months supply. Orquidea answered all medication related questions that the patient et her had et they deny no further needs at this time. Both deny any further needs et are waiting for their needed equipment to arrive to dismiss. No further needs identified.
--- NOTE | 2018-12-09 10:44 | Progress Note - Cardiology ---
Cardiology SOAP Progress Note Subjective: Sitting up in bed. Plan is to discharge home today. She states her breathing is better. No c/o CP, palpitations. Objective: I&O/Vital Signs 12/09/18 12/09/18 00:09 09:00 Temp 36.6 Pulse 78 Resp 18 B/P (MAP) 155/84 (107) Pulse Ox 96 96 O2 Delivery Nasal Cannula Nasal Cannula O2 Flow Rate 2.00 2.00 12/09/18 00:00 Intake Total 2245 ml Output Total 1600 ml Balance 645 ml Constitutional: AAO x 3, well-nourished Respiratory: No accessory muscle use, No respiratory distress; chest expansion is symmetric, chest is bilaterally symmetric, lungs clear to auscultation Cardiovascular: No JVD; S1 and S2 Gastrointestional: No tender; soft, round, audible bowel sounds Extremities: no lower extremity edema bilateral Neurologic/Psychiatric: grossly intact Skin: other (Dressing to left leg D&I - not removed) Results/Procedures: Labs Laboratory Tests 12/09/18 05:35: White Blood Count 5.9, Red Blood Count 3.21L, Hemoglobin 9.9L, Hematocrit 31L, Mean Corpuscular Volume 97, Mean Corpuscular Hemoglobin 31, Mean Corpuscular Hemoglobin Concent 32, Red Cell Distribution Width 15.1H, Platelet Count 210, Mean Platelet Volume 9.2, Neutrophils (%) (Auto) 57, Lymphocytes (%) (Auto) 32, Monocytes (%) (Auto) 8, Eosinophils (%) (Auto) 2, Basophils (%) (Auto) 0, Neutrophils # (Auto) 3.4, Lymphocytes # (Auto) 1.9, Monocytes # (Auto) 0.5, Eosinophils # (Auto) 0.1, Basophils # (Auto) 0.0, Sodium Level 142, Potassium Level 3.7, Chloride Level 105, Carbon Dioxide Level 27, Anion Gap 10, Blood Urea Nitrogen 11, Creatinine 0.64, Estimat Glomerular Filtration Rate > 60, BUN/Creatinine Ratio 17, Glucose Level 98, Calcium Level 8.9, Corrected Calcium 9.1, Total Bilirubin 0.6, Aspartate Amino Transf (AST/SGOT) 30, Alanine Aminotransferase (ALT/SGPT) 31, Alkaline Phosphatase 71, Total Protein 6.6, Albumin 3.7 Microbiology 12/05/18 Blood Culture - Preliminary, Resulted No growth 12/05/18 MRSA Screen - Final, Complete MRSA not isolated Laboratory Tests 12/09/18 05:35 A/P: Assessment: Elevated troponin - secondary to PE PE - [id number] emboli in the left lower lobe pulmonary arterial branches as well as an embolus in one of the smaller branches of the left upper lobe. There is a nonocclusive thrombus in the right main pulmonary artery laterally as well as some smaller emboli in the right lower lobe branches. Per CTA of the chest on 12-05-18 OAC with Eliquis (started on 12-05-18) Echocardiogram of Dec 05, 2018 shows LVEF 65-70%. No regional wall motion abnormalities. Grade 2 diastolic dysfunction. Mild to mod RV vol overload and pressure overload. RA dilated Mild to mod TR. RVSP 34 mmHg. IVC dilated. No evidence of DVT on LE venous doppler of 12-05-18 H/O recent L TKR on 12-04-[address] Saravia at [facility] H/O R TKR in 2014 H/O R rotator cuff repair in 2012 Tobaccoism - cessation advised Plan: * We have discussed her CV issues with her and her * Continue OAC with Eliquis * Out pt f/u in 2 weeks TEAGAN PEREZ Dec 09, 2018 10:43
[2018-12-09 11:30] VITALS: BP 155/84
--- NOTE | 2018-12-11 10:12 | Physician Query Clarification ---
PQ-Intro New Diagnosis Admission/Discharge Admission Date: Dec 05, 2018 at 13:00 Discharge Date: Dec 09, 2018 at 11:30 The medical record reflects the following clinical scenario: History/Risk Factors: S/P LT TKR, PE, smoker Clinical Findings: 18 hr post Lt TKR, abrupt onset SOB, hypoxia ABG 7.57/27/60, O2 sats 83% of oxygen, Tachy 130, venous ultrsound neg for DVT, CT angio positive for mod-sized PE Treatment: 4 L O2, Eliquis 10 mg BID, Lovenox 75 mg SC Question: What condition best reflects the above clinical scenario? Please document a response in the Progress Noter or Discharge Summary. 1. Pulmonary embolism postop complication resulting from/exacerbated by the surgery 2. Pulmonary embolism NOT due to/resulting from the surgery 3. Other, with explanation of the clinical findings. 4. Clinically undetermined, no explanation for the clinical findings. PHYSICIAN RESPONSE What condition reflects above: 1 Please remember a lack of response to the above will prompt a phone page by CDI/Coding staff. In responding to this query, please exercise your independent professional judgment. The purpose of this communication is to more accurately reflect the complexity of your patients condition. The fact that a question is asked does not imply that any particular answer is desired or expected. Thank you for your timely response to this clarification. Requestors name: Aleida THIS PHYSICIAN QUERY FORM IS A PERMANENT PART OF THE MEDICAL RECORD ALEIDA ABRAHAM Dec 11, 2018 10:12 VIJI HELM DO Dec 11, 2018 11:06
--- NOTE | 2018-12-11 10:18 | Physician Query Clarification ---
PQ-Further Specificity Admission/Discharge Admission Date: Dec 05, 2018 at 13:00 Discharge Date: Dec 09, 2018 at 11:30 The medical record reflects the following clinical scenario: History/Risk Factors: s/p Lt. TKR, Pulmonary embolism Clinical Findings: elevated troponin 0.532 Treatment: directed at PE, 4 L O2, Eliquis 10 mg BID, Lovenox 75 mg SC Question: Can you further specify the elevated troponin secondary to PE per the clinical indicators above? Please document a response in the Progress Notes or Discharge Summary. 1.Type 2 AR secondary to PE 2. Elevated troponin secondary to PE no type 2 AR 3. Other, with explanation of the clinical findings. 4. Clinically undetermined, no explanation for the clinical findings. PHYSICIAN RESPONSE Can you specify per above: Other, explanation/clinical finding Explanation/Clinical Findings Elevated troponin due to type 2 AR due to hypoxemia due to pulmonary embolism Please remember a lack of response to the above will prompt a phone page by [facility]/Coding staff. In responding to this query, please exercise your independent professional judgment. The purpose of this communication is to more accurately reflect the complexity of your patients condition. The fact that a question is asked does not imply that any particular answer is desired or expected. Thank you for your timely response to this clarification. Requestors name: Aleida THIS PHYSICIAN QUERY FORM IS A PERMANENT PART OF THE MEDICAL RECORD ALEIDA ABRAHAM Dec 11, 2018 10:18 LUCY PIPER MD [facility] Dec 12, 2018 18:20
== END 2018-12-09 11:30 | disposition home or self-care (01) | DRG 205 ==
LOC: ICU 13:00 → 4TH 12-06 12:28
PROVIDERS: ADMIT Internal Medicine; ATTEND Internal Medicine
DX: J95.89 Other postprocedural complications and disorders of respiratory system, not elsewhere classified (principal); I26.09 Other pulmonary embolism with acute cor pulmonale; I21.A1 Myocardial infarction type 2; R09.02 Hypoxemia; R79.89 Other specified abnormal findings of blood chemistry; F17.210 Nicotine dependence, cigarettes, uncomplicated; D64.9 Anemia, unspecified; J30.2 Other seasonal allergic rhinitis; I07.1 Rheumatic tricuspid insufficiency; K21.9 Gastro-esophageal reflux disease without esophagitis; M19.91 Primary osteoarthritis, unspecified site; Z96.652 Presence of left artificial knee joint; Z96.651 Presence of right artificial knee joint; Z79.01 Long term (current) use of anticoagulants
CPT/HCPCS: 36415; 71045; 71275; 80053; 81000; 82805; 83605; 83735; 83880; 84100; 84484; 85025; 85379; 87040; 87081; 93005; 93306; 93970; 94640; 94664; 94760; 94761

== ENCOUNTER → 2019-01-24 | Outpatient (CLI) | payer MEDICARE, OTHER ==
[~2019-01-24] MED LIST: ACHD5005 PO; APIX5TAB PO; BACL10TA PO; DOCU100C37 PO; ESOM20TA PO; GUAI-367 PO; LACT1CAP72 PO; LORA10TA76 PO; MAGN400T39 PO; MELO7.5T46 PO; OMG1KC PO; POTA99TA21 PO; RT-ALBUTEROL SULF 2.5 MG/3 ML PRE-MIX VIAL INH ONE; TRAM50TA2 PO; TURM500C4 PO; VITA400C60 PO; ZINC50TA4 PO
== END ==
LOC: RT 10:06
PROVIDERS: ATTEND Nurse Practitioner Family
DX: I26.99 Other pulmonary embolism without acute cor pulmonale (principal); Z72.0 Tobacco use
CPT/HCPCS: 94060; 94640; 94726; 94729

== ENCOUNTER 2019-01-29 20:31 | Outpatient (CLI) | payer MEDICARE, OTHER ==
[~2019-01-29 20:31] MED LIST changes: -RT-ALBUTEROL SULF 2.5 MG/3 ML PRE-MIX VIAL INH ONE
== END 2019-01-30 07:10 | disposition home or self-care (01) ==
LOC: SLEEP 20:31
PROVIDERS: ATTEND Nurse Practitioner Family
DX: G47.10 Hypersomnia, unspecified (principal); G47.61 Periodic limb movement disorder; G47.36 Sleep related hypoventilation in conditions classified elsewhere
CPT/HCPCS: 95810

== ENCOUNTER → 2019-04-28 | Outpatient (CLI) | payer MEDICARE, OTHER ==
[~2019-04-28] MED LIST changes: -TRAM50TA2 PO; +TRM50T PO
== END ==
LOC: CARD 11:00
PROVIDERS: ATTEND Internal Medicine Cardiovascular Disease
DX: I26.99 Other pulmonary embolism without acute cor pulmonale (principal); Z72.0 Tobacco use
CPT/HCPCS: 93306

== ENCOUNTER → 2019-08-22 | Outpatient (CLI) | payer MEDICARE, OTHER ==
[~2019-08-22] VITALS: Ht 157 cm; Wt 80.0 kg
[~2019-08-22] MED LIST changes: +CATHETER FLUSH 10 ML SYR IV PRN; +REGADENOSON 0.4 MG/5 ML SYR (LEXISCAN) IV ONE; +ZINC50TA11 PO; -ZINC50TA4 PO
[2019-08-22 07:13] LABS: BASOPHILS % (AUTO) 1 % (0-10); EOSINOPHILS # (AUTO) 0.2 10^3/uL (0.0-0.3); EOSINOPHILS % (AUTO) 5 % (0-10); HEMATOCRIT 30 % (35-52); LYMPHOCYTES # (AUTO) 1.5 X 10^3 (1.0-4.0); LYMPHOCYTES % (AUTO) 37 % (12-44); MEAN CORPUSCULAR HEMOGLOBIN 25 PG (25-34); MEAN CORPUSCULAR HGB CONC 30 G/DL (32-36); MEAN CORPUSCULAR VOLUME 83 FL (80-99); MEAN PLATELET VOLUME 9.3 FL (7.4-10.4); MONOCYTES # (AUTO) 0.5 X 10^3 (0.0-1.0); MONOCYTES % (AUTO) 13 % (0-12); NEUTROPHILS # (AUTO) 1.9 X 10^3 (1.8-7.8); NEUTROPHILS % (AUTO) 45 % (42-75); PLATELET COUNT 287 10^3/uL (130-400); RED CELL DISTRIBUTION WIDTH 16.9 % (10.0-14.5); WHITE BLOOD COUNT 4.2 10^3/uL (4.3-11.0)
[2019-08-22 07:30] LABS: ALANINE AMINOTRANSFERASE 17 U/L (0-55); ALBUMIN 4.1 GM/DL (3.2-4.5); ALKALINE PHOSPHATASE 86 U/L (40-136); BILIRUBIN,TOTAL 0.3 MG/DL (0.1-1.0); BUN/CREATININE RATIO 22; CALCIUM 8.8 MG/DL (8.5-10.1); CARBON DIOXIDE 27 MMOL/L (21-32); CHLORIDE 107 MMOL/L (98-107); CHOLESTEROL 173 MG/DL (< 200); CREATININE SERUM 0.73 MG/DL (0.60-1.30); GFR ESTIMATED > 60; GLUCOSE 97 MG/DL (70-105); HDL CHOLESTEROL 78 MG/DL (40-60); POTASSIUM 3.7 MMOL/L (3.6-5.0); SODIUM 142 MMOL/L (135-145); TOTAL PROTEIN 7.1 GM/DL (6.4-8.2); TRIGLYCERIDES 73 MG/DL (<150); VLDL CHOLESTEROL 15 MG/DL (5-40)
--- NOTE | 2019-08-22 15:59 | STRESS TEST ---
DATE OF SERVICE: 08/22/2019 RESTING AND POST REGADENOSON TECHNETIUM-99M TETROFOSMIN SPECT CT IMAGING Baseline images were carried out after injection of 10.58 mCi of technetium-99m Tetrofosmin. This was followed by 0.4 mg regadenoson and 31.2 mCi of technetium-99m Tetrofosmin for stress imaging. The electrocardiogram showed sinus rhythm at baseline. It did not change significantly with regadenoson infusion. The patient tolerated the procedure well. Review of images at rest and following stress does not indicate any significant perfusion defects consistent with myocardial ischemia or infarction. Gated images show normal global left ventricular systolic function with normal regional wall motion. Left ventricular ejection fraction calculated to be 59%. Left ventricular end diastolic volume is 62 mL. TID is absent (1.03). CONCLUSIONS: 1. No evidence of any significant myocardial ischemia or infarction on this study. 2. Normal regional wall motion. 3. Normal global left ventricular systolic function with a calculated ejection fraction of 59%. Job ID: [id number] DocumentID: [id number] Dictated Date: 08/22/2019 13:38:32 Fast Brim Pouncer Date: 08/22/2019 15:58:30 Dictated By: LUCY PIPER MD, MA, FACP, FACC,
== END ==
LOC: CARD 06:45
PROVIDERS: ATTEND Nurse Practitioner Family
DX: J44.9 Chronic obstructive pulmonary disease, unspecified (principal); G47.36 Sleep related hypoventilation in conditions classified elsewhere; Z86.711 Personal history of pulmonary embolism
CPT/HCPCS: 78452; 80053; 80061; 83735; 84443; 85025; 93017; 93225; 93226; A9502; 36415

== ENCOUNTER → 2020-04-23 | Outpatient (CLI) | payer MEDICARE, OTHER ==
[~2020-04-23] MED LIST changes: +HOLD METFORMIN - RECEIVED CONTRAST 20 ML VIAL IV SCH; +IOHEXOL 350 MG/ML 100 ML (OMNIPAQUE 350) VIAL IV ONE; +NS 100 ML (IVPB) BAG IV ONE; -REGADENOSON 0.4 MG/5 ML SYR (LEXISCAN) IV ONE; +RT-ALBUTEROL SULF 2.5 MG/3 ML PRE-MIX VIAL INH ONE
[2020-04-23 11:12] LABS: BUN/CREATININE RATIO 24; CREATININE SERUM 0.88 MG/DL (0.60-1.30); GFR ESTIMATED > 60
--- NOTE | 2020-04-23 13:14 | Diagnostic Imaging Report ---
PROCEDURE: CT angiography of the chest with contrast. TECHNIQUE: Multiple contiguous axial images were obtained through the chest after uneventful bolus administration of intravenous contrast. 3D reconstructed CTA MIP acquisitions were also performed. Auto Exposure Controls were utilized during the CT exam to meet ALARA standards for radiation dose reduction. INDICATION: Shortness of air. Patient has prior history of pulmonary embolism. Study is performed for further evaluation. Correlation is made with prior CT angiogram of the chest from 12/05/2018. The previously noted emboli within the right and left main pulmonary arteries as well as emboli within lobar, segmental and subsegmental branches have resolved since prior CT from November 2018. No new filling defects are seen. Thoracic aorta is normal caliber. There is no dissection. A large hiatal hernia is again noted. There is no pericardial or pleural fluid detected. There is subsegmental atelectasis in both bases. Upper abdomen is unremarkable. IMPRESSION: 1. Resolution of previously noted bilateral pulmonary emboli when compared to prior exam from 12/05/2018. No new emboli are detected. 2. Large hiatal hernia.. Dictated by: Dictated on workstation # [id number]
== END ==
LOC: RT 09:44
PROVIDERS: ATTEND Nurse Practitioner Family
DX: K44.9 Diaphragmatic hernia without obstruction or gangrene (principal); J44.9 Chronic obstructive pulmonary disease, unspecified; Z86.711 Personal history of pulmonary embolism
CPT/HCPCS: 36415; 71260; 71275; 82565; 84520; 94060; 94726; 94729